=== PATIENT | male | born 1935 | race Caucasian/White ===

== ENCOUNTER → 2016-07-21 | Outpatient (REF) | payer MEDICARE, OTHER ==
[~2016-07-21] MED LIST: /DULO30CA OR; /MOXI40TA OR; /PANT40TA OR; AMAR1TAB OR; AMAR1TAB PO; AMLO10TA OR; AMLO2.5T PO; ARIC10TA PO; ARICEPT PO; ASPI81TA83 OR; AUGM875T27 PO; AVAP300T OR; BYSTOLIC PO; CARD2TAB OR; CARD2TAB PO; CARV12.5 OR; CYMB1CAP5 PO; DETR4CAP10 PO; DETROL LA PO; FERR325T PO; FIBE625T27 PO; FISH1000 PO; HYDR25TA7 OR; IMDU60TA OR; INSUDET SC; IRON CR PO; JANUVIA PO; LASI20TA PO; LEVA250T PO; LEVE1INJ5 SC; LEVO125T3 PO; MAAL600C PO; MAGN400T PO; MAGN500T2 PO; METF1000 PO; METO5TAB2 OR; MILKSUS5 PO; MULTIVIT PO; NEUR300C OR; NEUR400C PO; NEXI40CA PO; NORV5TAB PO; PRED1SUS OD; REFR0.5D8 OU; REQU2TAB3 PO; REST0.05 OU; ROCEPHIN IM; SIMV40TA2 OR; SIMV40TA2 PO; SINE25TA5 PO; SITA50TAB PO; SYNT100T PO; SYNT125T OR; TRENTAL PO; TUSSIN DM PO; TYLE325T5 PO; VITA100066 PO; VITAMIN D PO; ZINC220C3 PO; ZINC50TA PO; [UNRECOGNIZED DRUG - CODE] PO
== END ==
LOC: M SMT 16:58
PROVIDERS: ATTEND Nurse Practitioner Women's Health
DX: N40.1 Benign prostatic hyperplasia with lower urinary tract symptoms (principal)
CPT/HCPCS: 51798; 81001; 87086; G0463

== ENCOUNTER 2016-11-24 17:47 | Emergency (ER) | payer MEDICARE, OTHER ==
[~2016-11-24] VITALS: Ht 167.6 cm; Wt 81.8 kg
[2016-11-24] MEDS ORDERED: NS 500 ML IV ONE (18:00)
[2016-11-24] MEDS ORDERED: CARD2TAB PO (18:22)
[2016-11-24] MEDS ORDERED: LIDO5DIS36 TD (18:22)
[2016-11-24] MEDS ORDERED: HUMA100I5 SC (18:22)
[2016-11-24] MEDS ORDERED: FIBE625T27 PO (18:22)
[2016-11-24] MEDS ORDERED: DULO30CA PO (18:22)
[2016-11-24] MEDS ORDERED: ARIC10TA PO (18:23)
[2016-11-24] MEDS ORDERED: MYRB50TA PO (18:23)
[2016-11-24] MEDS ORDERED: OPTI0.5D5 OU (18:23)
[2016-11-24] MEDS ORDERED: PROA1AER INH (18:23)
[2016-11-24] MEDS ORDERED: ZOFR20TA PO (18:23)
--- NOTE | 2016-11-24 18:54 | REP ---
Clinical: Chest pain . Comparison: 10/29/2015 . Findings: The mediastinum and cardiac silhouette are stable and within normal limits for portable technique. The lung martinez are clear without acute consolidation, effusion, or pneumothorax. Skeletal structures are intact. Impression: Normal portable chest x-ray Signed by Devyn Mijares MD 11/24/2016 06:45 P
[2016-11-24 19:08] LABS: ANION GAP 6 MEQ/L (8-16); BLOOD UREA NITROGEN 24 MG/DL (7-18); CALCIUM LEVEL 8.8 MG/DL (8.8-10.2); CARBON DIOXIDE LEVEL 31 MEQ/L (21-32); CHLORIDE LEVEL 106 MEQ/L (98-107); CREATININE FOR GFR 1.15 MG/DL (0.70-1.30); GLOMERULAR FILTRATION RATE > 60.0 (>35); GLUCOSE, FASTING 84 MG/DL (83-110); POTASSIUM SERUM 4.3 MEQ/L (3.5-5.1); SODIUM LEVEL 143 MEQ/L (136-145)
[2016-11-24 19:34] LABS: BASO % 0.4 % (0.0-1.0); EOS # 0.3 K/mm3 (0.0-0.50); EOS % 3.9 % (0.0-3.0); LARGE UNSTAINED CELL # 0.1 K/mm3 (0.0-0.4); LARGE UNSTAINED CELL % 1.4 % (0.0-4.0); LYMPH # 1.9 K/mm3 (1.5-4.5); LYMPH % 21.7 % (24.0-44.0); MEAN CORPUSCULAR HEMOGLOBIN 31.9 pg (27.0-33.0); MEAN CORPUSCULAR HGB CONC 34.3 g/dl (32.0-36.5); MEAN CORPUSCULAR VOLUME 93.2 fl (80.0-96.0); MONO # 0.5 K/mm3 (0.0-0.8); MONO % 6.2 % (0.0-5.0); NEUTROPHILS # 5.4 K/mm3 (1.8-7.7); NEUTROPHILS % 66.4 % (36.0-66.0); PLATELET COUNT, AUTOMATED 212 k/mm3 (150-450); RED CELL DISTRIBUTION WIDTH 12.3 % (11.5-14.5); WHITE BLOOD COUNT 8.2 K/mm3 (4.0-10.0)
--- NOTE | 2016-11-24 21:19 | REP ---
Clinical: Altered mental status and dizziness. Comparison: CT dated 06/15/2015, 10/22/2013, and MRI dated 09/24/2013. Findings: Age-related atrophy and microvascular ischemic changes are appreciated along with chronic periventricular leukomalacia. Subcentimeter hyperdense focus along the medial left parietal lobe with surrounding low density remains stable and previously diagnosed as cavernous hemangioma by MRI. The ventricles and sulci are symmetric. Couch-white differentiation is maintained. There is no evidence for acute intracranial hemorrhage, mass/mass effect, pathology or infarction. No extra-axial fluid collection. Calvarium is intact. Paranasal sinuses and mastoid air cells are clear. Impression: 1. Age related atrophy, periventricular leukomalacia and microvascular ischemic changes. Stable medial left parietal subcentimeter cavernous hemangioma. 2. No acute intracranial hemorrhage, infarction, or mass/mass effect. Signed by Devyn Mijares MD 11/24/2016 09:10 P
[2016-11-24 21:54] VITALS: O2SAT 96
[2016-11-24 23:09] VITALS: BP 178/86
--- NOTE | 2016-11-25 08:23 | ECGEPIP ---
Stationary ECG Study 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
== END 2016-11-24 23:13 | disposition home or self-care (01) ==
LOC: M ED 19:20
DX: R53.1 Weakness (principal); G20 Parkinson's disease; D18.02 Hemangioma of intracranial structures; I12.9 Hypertensive chronic kidney disease with stage 1 through stage 4 chronic kidney disease, or unspecified chronic kidney disease; E11.22 Type 2 diabetes mellitus with diabetic chronic kidney disease; N18.9 Chronic kidney disease, unspecified; Z79.899 Other long term (current) drug therapy

== ENCOUNTER → 2016-12-08 | Outpatient (REF) | payer MEDICARE, OTHER ==
[~2016-12-08] MED LIST changes: +DULO30CA PO; +HUMA100I5 SC; +LIDO5DIS36 TD; +MYRB50TA PO; +OPTI0.5D5 OU; +PROA1AER INH; +ZOFR20TA PO
== END ==
LOC: M SFHCPLAZ 14:15
PROVIDERS: ATTEND Nurse Practitioner Family
DX: R53.83 Other fatigue (principal); E03.9 Hypothyroidism, unspecified; R10.30 Lower abdominal pain, unspecified
CPT/HCPCS: 87086; G0463

== ENCOUNTER → 2016-12-09 | Outpatient (REF) | payer MEDICARE, OTHER | LOC: M SFHCPLAZ 17:16 | PROVIDERS: ATTEND Nurse Practitioner Family | DX: R10.30 Lower abdominal pain, unspecified (principal) ==

== ENCOUNTER → 2016-12-14 | Outpatient (REF) | payer MEDICARE, OTHER ==
[2016-12-14 11:24] LABS: BASO % 0.4 % (0.0-1.0); EOS # 0.2 K/mm3 (0.0-0.50); EOS % 3.1 % (0.0-3.0); LARGE UNSTAINED CELL # 0.1 K/mm3 (0.0-0.4); LYMPH # 1.1 K/mm3 (1.5-4.5); LYMPH % 16.9 % (24.0-44.0); MEAN CORPUSCULAR HGB CONC 33.7 g/dl (32.0-36.5); MEAN CORPUSCULAR VOLUME 94.9 fl (80.0-96.0); MONO # 0.4 K/mm3 (0.0-0.8); MONO % 6.5 % (0.0-5.0); NEUTROPHILS # 4.7 K/mm3 (1.8-7.7); NEUTROPHILS % 72.1 % (36.0-66.0); PLATELET COUNT, AUTOMATED 223 k/mm3 (150-450); RED CELL DISTRIBUTION WIDTH 12.2 % (11.5-14.5); WHITE BLOOD COUNT 6.4 K/mm3 (4.0-10.0)
[2016-12-14 11:54] LABS: CALCIUM LEVEL 8.3 MG/DL (8.8-10.2); CREATININE FOR GFR 1.25 MG/DL (0.70-1.30); GLOMERULAR FILTRATION RATE 58.9 (>35); POTASSIUM SERUM 4.2 MEQ/L (3.5-5.1)
== END ==
PROVIDERS: ATTEND Nurse Practitioner Family
DX: R53.83 Other fatigue (principal); E03.9 Hypothyroidism, unspecified

== ENCOUNTER → 2017-01-13 | Outpatient (REF) | payer MEDICARE, OTHER ==
[~2017-01-13] MED LIST changes: +ALPR0.25 PO; -ARIC10TA PO; +ARIC1TAB2 PO; -AUGM875T27 PO; +AUGM875T28 PO; +BACT800T5 PO; +BUSP10TA PO; +BUSP5TA PO; +DETR4CAP PO; -DETR4CAP10 PO; +FERR1TAB8 PO; -FERR325T PO; +GUAI100S7 PO; +LEVA1TAB PO; -LEVA250T PO; -LEVO125T3 PO; +LEVO125T4 PO; +LEVO75TA4 PO; -LIDO5DIS36 TD; +LIDO5DIS41 TD; +MAPA325T2 PO; -METF1000 PO; +METF10004 PO; -PROA1AER INH; +PROAAER10 INH; +ZOLO50TA PO
== END ==
LOC: M SFHCPLAZ 11:04
PROVIDERS: ATTEND Family Medicine
DX: R53.1 Weakness (principal)

== ENCOUNTER 2017-01-28 16:03 | Emergency (ER) | payer MEDICARE, OTHER ==
[~2017-01-28] VITALS: Ht 162.6 cm; Wt 82.2 kg
[~2017-01-28 16:03] MED LIST changes: -ALPR0.25 PO; -BACT800T5 PO; -BUSP10TA PO; -BUSP5TA PO; -GUAI100S7 PO; -LEVO75TA4 PO; -MAPA325T2 PO; -ZOLO50TA PO
[2017-01-28] MEDS ORDERED: BUSP10TA PO (16:26)
[2017-01-28] MEDS ORDERED: ZOLO50TA PO (16:30)
--- NOTE | 2017-01-28 16:48 | REP ---
CT Head without contrast HISTORY: Trauma COMPARISON: 11/24/2016 Areas of decreased attenuation are present in the periventricular and subcortical white matter. This represents small-vessel ischemic disease. A small calcified density is present in the posterior left parietal lobe. This represents a cavernous hemangioma. There is no intraparenchymal hemorrhage, acute infarct, mass or midline shift. The ventricular system and cortical sulci as well as subarachnoid space in the posterior fossa are dilated consistent with moderate volume loss. There is no extra cerebral collection. There is no fracture. The visualized sinuses are clear. IMPRESSION: 1. Small vessel ischemic disease. 2. Small left parietal lobe cavernous hemangioma. 3. Moderate volume loss. Signed by Marcus Tarango MD 01/28/2017 04:39 P
--- NOTE | 2017-01-28 16:51 | REP ---
Right shoulder three views: Comparison is 05/24/2014. There is demineralization. There is no fracture or dislocation. There is narrowing of the subacromial space with cephalad migration of the humeral head, as previously, compatible with chronic impingement. There are no calcifications or foreign bodies. Signed by Sj Resendiz MD 01/28/2017 04:44 P
--- NOTE | 2017-01-28 16:53 | REP ---
Right wrist four views : There is no fracture or dislocation. Mineralization and joint spaces are normal. There are no calcifications or foreign bodies. Impression: Negative right wrist . Signed by Sj Resendiz MD 01/28/2017 04:45 P
[2017-01-28 18:03] VITALS: BP 131/72
--- NOTE | 2017-01-29 10:34 | ED PDOC ---
Post-Departure Follow-Up radiology report faxed to Lorie Escobar MD Jan 29, 2017 10:34
== END 2017-01-28 18:22 | disposition home or self-care (01) ==
LOC: EDBD 16:03 → M ED 16:03
DX: S40.012A Contusion of left shoulder, initial encounter (principal); W19.XXXA Unspecified fall, initial encounter; Y92.129 Unspecified place in nursing home as the place of occurrence of the external cause; Y93.89 Activity, other specified; Y99.8 Other external cause status; G20 Parkinson's disease; G30.9 Alzheimer's disease, unspecified; F02.81 Dementia in other diseases classified elsewhere, unspecified severity, with behavioral disturbance; N18.9 Chronic kidney disease, unspecified; I12.9 Hypertensive chronic kidney disease with stage 1 through stage 4 chronic kidney disease, or unspecified chronic kidney disease; E11.22 Type 2 diabetes mellitus with diabetic chronic kidney disease; E78.5 Hyperlipidemia, unspecified; Z79.4 Long term (current) use of insulin; Z79.899 Other long term (current) drug therapy

== ENCOUNTER → 2017-02-02 | Outpatient (REF) | payer MEDICARE, OTHER ==
[~2017-02-02] MED LIST changes: +ALPR0.25 PO; +BACT800T5 PO; +BUSP10TA PO; +BUSP5TA PO; +GUAI100S7 PO; +LEVO75TA4 PO; +MAPA325T2 PO; +ZOLO50TA PO
== END ==
PROVIDERS: ATTEND Family Medicine
DX: R41.0 Disorientation, unspecified (principal)

== ENCOUNTER 2017-02-05 16:17 | Inpatient (IN) | payer MEDICARE, OTHER ==
[~2017-02-05] VITALS: Ht 162.6 cm; Wt 78.6 kg
[~2017-02-05 16:17] MED LIST changes: -ALPR0.25 PO; -BACT800T5 PO; -BUSP5TA PO; -GUAI100S7 PO; -LEVO75TA4 PO; -MAPA325T2 PO
[2017-02-05 17:19] LABS: BASO % 0.3 % (0.0-1.0); EOS # 0.2 K/mm3 (0.0-0.50); EOS % 2.8 % (0.0-3.0); LARGE UNSTAINED CELL # 0.1 K/mm3 (0.0-0.4); LARGE UNSTAINED CELL % 1.6 % (0.0-4.0); LYMPH # 1.3 K/mm3 (1.5-4.5); LYMPH % 14.8 % (24.0-44.0); MEAN CORPUSCULAR HEMOGLOBIN 31.5 pg (27.0-33.0); MEAN CORPUSCULAR HGB CONC 33.7 g/dl (32.0-36.5); MEAN CORPUSCULAR VOLUME 93.6 fl (80.0-96.0); MONO # 0.5 K/mm3 (0.0-0.8); MONO % 5.4 % (0.0-5.0); NEUTROPHILS # 6.3 K/mm3 (1.8-7.7); NEUTROPHILS % 75.2 % (36.0-66.0); PLATELET COUNT, AUTOMATED 228 k/mm3 (150-450); RED CELL DISTRIBUTION WIDTH 12.5 % (11.5-14.5); WHITE BLOOD COUNT 8.4 K/mm3 (4.0-10.0)
--- NOTE | 2017-02-05 17:30 | REPUSA ---
CLINICAL HISTORY: AMS. TECHNIQUE: Multiple axial CT images were obtained through the brain without IV contrast material. COMMENTS: There is normal configuration of sella turcica. There are no intra or extra-axial collections. There is no mass effect or midline shift. There is no evidence of hematoma formation. No hydrocephalus is p resent. The ventricles are symmetrical. No abnormal calcifications are present. There is diffuse age-appropriate cerebellar and cerebral atrophy with proportionally dilated ventricl es and cortical sulci. There are bilateral periventricular and subcortical white matter hypolucencies compatible with mild c hronic microvascular disease. Otherwise, no significant focal abnormalities are seen either in the posterior fossa or supratentoria l compartment. IMPRESSION: 1. Age-appropriate cerebellar and cerebral atrophy. 2. Mild chronic microvascular disease. 3. No evidence of acute intracranial pathology. Thank you for your kind referral of this patient.
[2017-02-05] MEDS: NS 1,000 ML IV SCH (17:32)
[2017-02-05 17:56] LABS: ALBUMIN 3.5 GM/DL (3.2-5.2); ALBUMIN/GLOBULIN RATIO 1.17 (1.00-1.93); BILIRUBIN,DIRECT 0.1 MG/DL (0.0-0.2); BILIRUBIN,TOTAL 0.4 MG/DL (0.2-1.0); CALCIUM LEVEL 8.6 MG/DL (8.8-10.2); CREATININE FOR GFR 1.61 MG/DL (0.70-1.30); POTASSIUM SERUM 4.5 MEQ/L (3.5-5.1); TOTAL PROTEIN 6.5 GM/DL (6.4-8.2)
[2017-02-05] MEDS ORDERED: BACT800T5 PO (18:12)
[2017-02-05] MEDS ORDERED: ALPR0.25 PO (18:20)
[2017-02-05] MEDS ORDERED: BUSP5TA PO (18:20)
[2017-02-05] MEDS ORDERED: LEVO75TA4 PO (18:20)
[2017-02-05] MEDS ORDERED: GUAI100S7 PO (18:32)
[2017-02-05] MEDS ORDERED: MAPA325T2 PO (18:32)
[2017-02-05] MEDS ORDERED: GLUCAGON FOR INJ 1 MG VIAL (J1610) SC PRN (20:30)
[2017-02-05] MEDS ORDERED: ACETAMINOPHEN 325 MG TAB PO PRN (20:30)
[2017-02-05] MEDS ORDERED: guaiFENesin SYRUP 200 MG/10 ML UDC PO PRN (20:30)
[2017-02-05] MEDS ORDERED: GLUCOSE 4 GM CHEW TABLET PO PRN (20:30)
[2017-02-05] MEDS ORDERED: ALBUTEROL 90 MCG/ACT 8GM HFA INHALER INH PRN (20:30)
[2017-02-05] MEDS ORDERED: ONDANSETRON 4 MG TAB (S0181) PO PRN (20:30)
[2017-02-05] MEDS ORDERED: DEXTROSE 50% 50 ML SYRINGE IV PRN (20:30)
[2017-02-05] MEDS: HumaLOG INSULIN (NovoLOG) PER UNIT SC SCH (21:00)
[2017-02-05] MEDS: **NOTE PATIENT COMMENT** MISC XX SCH (21:00)
[2017-02-05 21:05] LABS: FREE T4 1.17 NG/DL (0.76-1.46)
--- NOTE | 2017-02-05 22:00 | REPUSA ---
Clinicaly History: Atherosclerosis. Findings: Real-Time carotid duplex ultrasound with color Doppler flow was performed on the right side only. The left carotid was not image. Normal color Doppler flow and arterial waveforms are noted. Mi ld atherosclerotic plaque is seen in the region of the right carotid bulb. No elevated velocities are seen however. Antegrade blood flow is seen in the vertebral arteries bilaterally. There is no eviden ce of subclavian steal. The right ICA/CCA ratio measures 0.63. Impression: No evidence of hemodynamically significant stenosis in the right carotid arterial system. Mild atherosclerotic plaque is seen in the region of the right carotid bulb. The left side was not i audelia.
--- NOTE | 2017-02-05 22:20 | REPUSA ---
MRI of the brain clinical history: altered mental status. Comparison: 02/05/2017. Technique: Multiecho multiplanar MRI images of the brain were obtained without administration of cont rast. Diffusion weighted images with ADC mapping was also obtained. Findings: The ventricles and sulci are symmetric but enlarged bilaterally. The brain parenchyma demonstrates mo derate Series of T2 hyperintensity throughout the. Ventricular and subcortical white matter bilateral ly. There is no midline shift, mass effect, or extra-axial fluid collection. The midline intracranial structures do not demonstrate any gross abnormalities. The cervical cranial junction is intact. The orbits are unremarkable. The visualized paranasal sinuses and mastoid air cells are clear. The osseou s structures and superficial soft tissues are unremarkable. The vascular structures demonstrate appro priate flow voids. Impression: No evidence of acute infarct or hemorrhage. Moderate age-related atrophy and chronic smal l vessel ischemic disease, grossly stable.
[2017-02-05 23:00] VITALS: BP 178/74
[2017-02-05] MEDS: rOPINIRole 1MG TAB PO SCH (23:54)
[2017-02-05] MEDS: SINEMET 25-100 MG TAB PO SCH (23:54)
[2017-02-06] VITALS (8 sets, daily range): BP systolic 139–180; BP diastolic 62–80
[2017-02-06] MEDS: PANTOPRAZOLE 40MG TAB (PROTONIX) PO SCH ×3 (00:10→21:00)
[2017-02-06] MEDS: DOXAZOSIN MESYLATE 1 MG TAB PO SCH ×2 (00:10→09:42)
[2017-02-06] MEDS: MAGNESIUM OXIDE 400 MG TAB (MAG-OX) PO SCH ×2 (00:10→21:12)
[2017-02-06] MEDS: busPIRone 5 MG TAB PO SCH ×3 (00:11→21:13)
[2017-02-06] MEDS: FERROUS SULFATE 325MG TAB PO SCH ×3 (00:11→21:13)
[2017-02-06] MEDS: SIMVASTATIN 20 MG TAB PO SCH ×2 (00:11→21:13)
--- NOTE | 2017-02-06 02:07 | ECGEPIP ---
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
[2017-02-06] MEDS: NS 1,000 ML IV SCH ×2 (05:16→13:38)
[2017-02-06] MEDS: LEVOTHYROXINE 75MCG TABLET (0.075MG) PO SCH (05:25)
[2017-02-06 05:33] LABS: BASO % 0.2 % (0.0-1.0); EOS # 0.2 K/mm3 (0.0-0.50); EOS % 2.9 % (0.0-3.0); LARGE UNSTAINED CELL # 0.1 K/mm3 (0.0-0.4); LARGE UNSTAINED CELL % 1.1 % (0.0-4.0); LYMPH # 1.2 K/mm3 (1.5-4.5); LYMPH % 14.1 % (24.0-44.0); MONO # 0.5 K/mm3 (0.0-0.8); MONO % 6.3 % (0.0-5.0); NEUTROPHILS % 75.3 % (36.0-66.0); PLATELET COUNT, AUTOMATED 223 k/mm3 (150-450); RED CELL DISTRIBUTION WIDTH 12.8 % (11.5-14.5)
[2017-02-06 05:50] LABS: ALBUMIN 3.1 GM/DL (3.2-5.2); ALBUMIN/GLOBULIN RATIO 0.94 (1.00-1.93); BILIRUBIN,TOTAL 0.5 MG/DL (0.2-1.0); CALCIUM LEVEL 8.4 MG/DL (8.8-10.2); CREATININE FOR GFR 1.41 MG/DL (0.70-1.30); GLOMERULAR FILTRATION RATE 51.2 (>35); POTASSIUM SERUM 4.1 MEQ/L (3.5-5.1); TOTAL PROTEIN 6.4 GM/DL (6.4-8.2)
--- NOTE | 2017-02-06 08:12 | REP ---
REASON: Altered mental status. COMPARISON: Portable 11/24/2016. AP and lateral views were obtained. The technique utilized in obtaining the radiograph has magnified the cardiac silhouette and accentuated the interstitial markings. The superior mediastinal structures are midline. The cardiac silhouette is unremarkable in size, shape, and position. The diaphragmatic surfaces of the lungs are regular, and the costophrenic angles are clear. The pulmonary martinez are clear. The imaged osseous structures are intact. IMPRESSION: There is no acute cardiopulmonary disease. No change from the prior exam other than technique. Signed by Shankar Ray DO 02/06/2017 09:21 A
--- NOTE | 2017-02-06 09:38 | REP ---
REASON: Abdominal tenderness. COMPARISON: 10/29/2015. FINDINGS: KUB shows the intestinal gas pattern to be nonspecific. The organ silhouettes insofar as delineated are unremarkable. There is no evidence of free intraperitoneal air. IMPRESSION: Nonspecific. There is a large amount of stool in the right and transverse colon. Signed by Shankar Ray DO 02/06/2017 10:16 A
[2017-02-06] MEDS: HumaLOG INSULIN (NovoLOG) PER UNIT SC SCH ×4 (09:41→21:12)
[2017-02-06] MEDS: VITAMIN D 1,000 INTERNATIONAL UNITS TABLET PO SCH (09:42)
[2017-02-06] MEDS: LIDOCAINE 5% (LIDODERM) PATCH TD SCH (09:42)
[2017-02-06] MEDS: FIBER-CON 625 MG TAB PO SCH (09:42)
[2017-02-06] MEDS: rOPINIRole 1MG TAB PO SCH ×2 (09:42→21:13)
[2017-02-06] MEDS: SINEMET 25-100 MG TAB PO SCH ×4 (09:42→21:13)
[2017-02-06] MEDS: OMEGA-3 1050MG CAPSULE PO SCH (09:42)
--- NOTE | 2017-02-06 14:45 | PHACANCOPD ---
PHARMACY VANCOMYCIN DOSING Pt Demographics Demographics Patient Age:81 , Weight:78.600 , Gender: male Adjusted Body Weight Date: 02/06/17, Adjusted Body Weight: Kg Events Past 24 Hours Events Past 24 Hours: YES: Change in CrCl, NO: Dialysis, Diuretic Therapy, Fever, Elevation in WBC, Pending Diagnostics , Pending Procedures, Other Vancomycin Vancomycin indication: bacteremia Vancomycin Target Ranges: 15-20 mcg/ml Vancomycin Load Y/N: Yes Load Dose Date Time Vancomycin Load Dose: 1000mg Date: 02/06 Time: 15:00 Vancomycin Dose Date: 02/06/17. Current Vancomycin Dose: [1g IV q18h @21] Intermittent Dosing?: No Labs Labs Item Value Date Time White Blood Count 8.4 K/mm3 02/05/17 1701 White Blood Count 8.0 K/mm3 02/06/17 0448 Creatinine 1.41 MG/DL H 02/06/17 0448 Creatinine 1.61 MG/DL H 02/05/17 1700 C-Reactive Protein, Quantitative 0.73 MG/DL H 02/05/17 1700 Micro Microbiology 02/05/17 Blood Culture - Preliminary, Resulted 02/05/17 Blood Culture, Received Pending 02/05/17 Urine Culture, Received Pending Creatinine Clearance Date:02/06/17. Creatinine Clearance: [~34 ml/min]. Assessment and Plan Maintaining Current Dose?: Yes Reason for dose change: No Dose Change Pharmacist Note Pharmacist Note Date: 02/06/17. Pharmacist note: pt has been started on vancomycin secondary to a preliminary positive blood culture of gram + cocci in clusters. Pt does not have any significant culture hx, nor has he been on vancomycin in the past. Baseline SCr appears to be around 1.1 mg/dl; it has improved today from yesterday although it is still elevated at 1.41 mg/dl. I have started him on vancomycin 1g IV q18h to start 6 hours after the initial dose. We will continue to monitor and order a trough as necessary. Denilson Stark Pharm.D. Feb 06, 2017 14:45
[2017-02-06] MEDS ORDERED: VANCOMYCIN HCL 1,000 MG, VIAL MATE ADAPTER 1 EACH in D5W 250 ML IV ONE (15:00)
[2017-02-06] MEDS: **NOTE PATIENT COMMENT** MISC XX SCH (21:00)
[2017-02-06] MEDS: VANCOMYCIN HCL 1,000 MG, VIAL MATE ADAPTER 1 EACH in D5W 250 ML IV SCH (21:13)
--- NOTE | 2017-02-06 22:51 | HPEPDOC ---
General Date of Admission Feb 05, 2017 at 20:16 Primary Care Physician: HECTOR BRISENO MD Attending Physician: PAUL PRATT DO Chief Complaint The patient is a 81-year-old male admitted with a reason for visit of Confusion , Fall. Source: Family Exam Limitations: Dementia History of Present Illness This is an 81 year old male patient of Dr. Briseno'kacie, who is brought to the ED from [facility] assisted living for complaints of confusion and falls. Mr. Jolly has had at least 3 falls in the last couple weeks. His daughter states that they have been unwitnessed, "slip off the bed," events without real injury. She does note that he has been increasingly weak in the last week or two, and describes him as "going downhill." He has a lift chair to help him stand, and once on his feet he will usually walk (slowly) throughout [facility], but has needed assistance to ambulate today. His daughter states that the morning of admission , while trying to stand, he was weak enough that he couldn't really get on his feet and kept sitting back down mid-motion. He was recently treated for a urinary tract infection, but urine cultures did not grow anything. He has had worsening anxiety since early December, causing some changes in his psychiatric medications. He was prescribed Buspar, and then his long-standing Cymbalta was stopped in favor of Zoloft. Home Medications Scheduled (Restasis) 0.05 % Emu, 1 DROP OU BID, (Reported) (Refresh Optive 0.5-0.9 %) 1 Jayy Jayy, 1 DROP OU QID, (Reported) Amlodipine Besylate (Amlodipine Besylate) 2.5 Mg Tab, 2.5 MG PO QHS, (Reported) Buspirone HCl (Buspirone HCl) 5 Mg Tab, 5 MG PO BID, (Reported) Calcium Polycarbophil (Fiber Tabs) 625 Mg Tab, 625 MG PO DAILY, (Reported) Carbidopa/Levodopa (Sinemet 25-100 mg) 1 Tab Tab, 1 TAB PO QID, (Reported) Cholecalciferol (Vitamin D) 1,000 Unit Tab, 1,000 UNIT PO DAILY, (Reported) Doxazosin Mesylate (Cardura) 2 Mg Tab, 2 MG PO BID, (Reported) Esomeprazole Magnesium Trihydr (Nexium) 40 Mg Cap, 40 MG PO BID, (Reported) Ferrous Sulfate (Ferrous Sulfate) 325 Mg Tab, 325 MG PO BID, (Reported) Fish Oil (Fish Oil) 1,000 Mg Cap, 1,000 MG PO DAILY, (Reported) Insulin Detemir (Levemir) 1 Units/0.01 Ml Susp, 22 UNITS SC DAILY, (Reported) Insulin Human Lispro (Humalog Kwikpen) 100 Unit/Ml Inj, 4 UNITS SC AC, (Reported ) Levothyroxine Sodium (Synthroid) 75 Mcg Tab, 75 MCG PO QAM, (Reported) Lidocaine (Lidoderm) 5 % Dis, 1 PATCH TD DAILY, (Reported) LOWER BACK Magnesium Oxide (Magnesium Oxide) 400 Mg Tab, 400 MG PO QHS, (Reported) Mirabegron Base (Myrbetriq) 50 Mg Tab, 50 MG PO DAILY, (Reported) Ropinirole Hydrochloride (Requip) 2 Mg Tab, 2 MG PO BID, (Reported) Sertraline Hcl (Zoloft) 50 Mg Tab, 50 MG PO DAILY, (Reported) Simvastatin - High Dose (Simvastatin) 40 Mg Tab, 20 MG PO QHS, (Reported) Sitagliptin (Januvia) 50 Mg Tab, 50 MG PO DAILY, (Reported) Trimethoprim/Sulfamethoxazole (Bactrim Ds 800-160 mg) 1 Tab Tab, 1 TAB PO Q12H, (Reported) 14 DAYS STARTED ON 02/03 Zinc (Zinc) 50 Mg Tab, 50 MG PO QPM, (Reported) with dinner Scheduled PRN Acetaminophen (Mapap) 325 Mg Tab, 325 MG PO Q6H PRN for FEVER, (Reported) Albuterol Sulfate (Proair Hfa) 108 Mcg/Act Aer, 1 PUFF INH QIDP PRN for SHORTNESS OF BREATH, (Reported) Alprazolam (Alprazolam) 0.25 Mg Tab, 0.25 MG PO BID PRN for ANXIETY, (Reported) Guaifenesin (Guaifenesin) 100 Mg/5 Ml Syp, 5 ML PO Q4H PRN for COUGH, (Reported) Ondansetron HCl (Zofran) 4 Mg Tab, 4 MG PO Q8H PRN for NAUSEA, (Reported) Allergies Coded Allergies: No Known Drug Allergy (Verified Allergy, Unknown, 10/10/12) Past Medical History Medical History Parkinson's, dementia, 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 He independently complains of leg and foot discomfort bilat. Physical Examination General Exam: Positive: Alert, Cooperative Eye Exam: Positive: PERRLA, Conjunctiva & lids normal, EOMI Chest Exam: Positive: Clear to auscultation, Normal air movement Heart Exam: Positive: Rate Normal Abdomen Exam: Positive: Normal bowel sounds, Soft, Tenderness (mild, LLQ) Extremity Exam: Negative: Edema Skin Exam: Positive: Nl turgor and temperature Neuro Exam: Negative: Normal Gait, Strength at 5/5 X4 ext, Sensation Intact Psych Exam: Positive: Mental status NL (confused), Anxiety, Negative: Oriented x 3 Vital Signs Vital Signs Date Time Temp Pulse Resp B/P (MAP) Pulse Ox O2 Delivery O2 Flow Rate FiO2 02/06/17 21:12 70 140/72 02/06/17 20:23 98.9 20 98 Room Air Laboratory Data Labs 24H Laboratory Tests 2 02/05/17 22:56: Total Creatine Kinase 516H, Creatine Kinase MB 9.8H, Creatine Kinase MB Relative Index 1.89, Troponin I 0.03 02/06/17 00:23: Bedside Glucose (Misc Panel) 83 02/06/17 04:48: White Blood Count 8.0, Red Blood Count 3.45L, Hemoglobin 11.0L, Hematocrit 32.5L , Mean Corpuscular Volume 94.0, Mean Corpuscular Hemoglobin 32.0, Mean Corpuscular Hemoglobin Concent 34.0, Red Cell Distribution Width 12.8, Platelet Count 223, Neutrophils (%) (Auto) 75.3H, Lymphocytes (%) (Auto) 14.1L, Monocytes (%) (Auto) 6.3H, Eosinophils (%) (Auto) 2.9, Basophils (%) (Auto) 0.2 , Neutrophils # (Auto) 6.0, Lymphocytes # (Auto) 1.2L, Monocytes # (Auto) 0.5, Eosinophils # (Auto) 0.2, Basophils # (Auto) 0.0, Large Unclassified Cells % 1.1 , Large Unclassified Cells # 0.1, Anion Gap 10, Glomerular Filtration Rate 51.2 , Blood Urea Nitrogen 26H, Creatinine 1.41H, Sodium Level 142, Potassium Level 4.1, Chloride Level 108H, Carbon Dioxide Level 24, Calcium Level 8.4L, Aspartate Amino Transf (AST/SGOT) 37, Alanine Aminotransferase (ALT/SGPT) 9L, Alkaline Phosphatase 78, Total Bilirubin 0.5, Total Protein 6.4, Albumin 3.1L, Albumin/Globulin Ratio 0.94L 02/06/17 16:36: Bedside Glucose (Misc Panel) 231H 02/06/17 20:58: Bedside Glucose (Misc Panel) 282H CBC/BMP Laboratory Tests 02/06/17 04:48 Red Blood Count 3.45 L, Mean Corpuscular Volume 94.0, Mean Corpuscular Hemoglobin 32.0, Mean Corpuscular Hemoglobin Concent 34.0, Red Cell Distribution Width 12.8, Neutrophils (%) (Auto) 75.3 H, Lymphocytes (%) (Auto) 14.1 L, Monocytes (%) (Auto) 6.3 H, Eosinophils (%) (Auto) 2.9, Basophils (%) ( Auto) 0.2, Neutrophils # (Auto) 6.0, Lymphocytes # (Auto) 1.2 L, Monocytes # ( Auto) 0.5, Eosinophils # (Auto) 0.2, Basophils # (Auto) 0.0, Calcium Level 8.4 L , Aspartate Amino Transf (AST/SGOT) 37, Alanine Aminotransferase (ALT/SGPT) 9 L , Alkaline Phosphatase 78, Total Bilirubin 0.5, Total Protein 6.4, Albumin 3.1 L Microbiology Microbiology 02/06/17 Blood Culture, Received Pending 02/06/17 Blood Culture, Received Pending 02/05/17 Blood Culture - Preliminary, Resulted 02/05/17 Blood Culture - Preliminary, Resulted 02/05/17 Urine Culture, Received Pending Problems (1) Fall Status: Acute Problem Text: Without injury. PT to eval and treat. Orthostatic vitals ordered. (2) Weakness Status: Acute Problem Text: Differential includes deconditioning vs medication vs orthostasis , or a combination. Orthostatic vitals ordered. PT will eval and treat. He may not be safe for DC to assisted living. (3) Parkinson's disease Status: Acute Problem Text: On levodopa/carbidopa. Gait likely contributes to his falls. (4) Confusion Problem Text: I am holding his most recent SSRI, in case that is contributing. An occult infection is a possibility. He was prescribed Bactrim for a UTI on , but current UA does not look consistent with a UTI, so I am holding antibiotics and monitoring. (Cultures sent.) Additionally, his dementia may be worsening. (5) Chronic kidney disease Status: Chronic (6) Abdominal tenderness of left lower quadrant Status: Acute Problem Text: Mild. Plain film ordered. Plan / VTE VTE Prophylaxis Ordered?: Yes PAUL PRATT DO Feb 06, 2017 22:51
--- NOTE | 2017-02-06 23:03 | IPNPDOC ---
Subjective Date Seen The patient was seen on 02/06/17. Subjective Chief Complaint/HPI The patient is a 81-year-old male admitted with a reason for visit of Confusion , Fall. Events since last encounter Orthostatic vitals were taken, and patient was found to be orthostatic. One blood culture came back positive with clustered gram positive cocci. He was unable to participate with PT. General: Reports: ROS Unobtainable Objective Physical Examination General Exam: Positive: Alert, Cooperative Eye Exam: Positive: PERRLA, Conjunctiva & lids normal, EOMI Chest Exam: Positive: Clear to auscultation, Normal air movement Heart Exam: Positive: Rate Normal Abdomen Exam: Positive: Normal bowel sounds, Soft, Negative: Tenderness Extremity Exam: Negative: Edema Skin Exam: Positive: Nl turgor and temperature Neuro Exam: Negative: Normal Gait, Strength at 5/5 X4 ext, Sensation Intact Psych Exam: Positive: Mental status NL (confused), Anxiety, Negative: Oriented x 3 Assessment /Plan Problems (1) Fall Status: Acute Problem Text: 02/06 -- likely contributed to by orthostasis, but probably multifactorial -- vision, neuropathy, deconditioning, orthostasis, etc. He is having trouble cooperating with PT. Without injury. PT to eval and treat. Orthostatic vitals ordered. (2) Weakness Status: Acute Response to Treatment: Compensated, Progressing Problem Text: 02/06 -- as above, patient becomes orthostatic. Differential includes deconditioning vs medication vs orthostasis, or a combination. Orthostatic vitals ordered. PT will eval and treat. He may not be safe for DC to assisted living. (3) Parkinson's disease Status: Acute Problem Text: On levodopa/carbidopa. Gait likely contributes to his falls. (4) Confusion Problem Text: I am holding his most recent SSRI, in case that is contributing. An occult infection is a possibility. He was prescribed Bactrim for a UTI on , but current UA does not look consistent with a UTI, so I am holding antibiotics and monitoring. (Cultures sent.) Additionally, his dementia may be worsening. (5) Chronic kidney disease Status: Chronic (6) Abdominal tenderness of left lower quadrant Status: Acute Problem Text: 02/06 -- X ray consistent with constipation; bowel care ordered. Mild. Plain film ordered. (7) Orthostasis Problem Text: Patient is on a number of medications that can contribute to orthostasis, including doxazosin. I started by DCing this, with bladder scans to monitor for urinary retention. We may need to adjust other medications as well. Follow up orthostatic vitals are ordered for tomorrow. (8) Positive blood culture Problem Text: Unclear if this is real or contaminant. Started on vanco until this is determined. Echo ordered. Plan/VTE VTE Prophylaxis Ordered?: Yes VS, I&O, 24H, Fishbone Vital Signs/I&O Vital Signs Date Time Temp Pulse Resp B/P (MAP) Pulse Ox O2 Delivery O2 Flow Rate FiO2 02/06/17 21:12 70 140/72 02/06/17 20:23 98.9 20 98 Room Air I&O- Last 24 Hours up to 6 AM 02/06/17 06:00 Intake Total 1180 ml Balance 1180 ml Laboratory Data 24H LABS Laboratory Tests 2 02/05/17 22:56: Total Creatine Kinase 516H, Creatine Kinase MB 9.8H, Creatine Kinase MB Relative Index 1.89, Troponin I 0.03 02/06/17 00:23: Bedside Glucose (Misc Panel) 83 02/06/17 04:48: White Blood Count 8.0, Red Blood Count 3.45L, Hemoglobin 11.0L, Hematocrit 32.5L , Mean Corpuscular Volume 94.0, Mean Corpuscular Hemoglobin 32.0, Mean Corpuscular Hemoglobin Concent 34.0, Red Cell Distribution Width 12.8, Platelet Count 223, Neutrophils (%) (Auto) 75.3H, Lymphocytes (%) (Auto) 14.1L, Monocytes (%) (Auto) 6.3H, Eosinophils (%) (Auto) 2.9, Basophils (%) (Auto) 0.2 , Neutrophils # (Auto) 6.0, Lymphocytes # (Auto) 1.2L, Monocytes # (Auto) 0.5, Eosinophils # (Auto) 0.2, Basophils # (Auto) 0.0, Large Unclassified Cells % 1.1 , Large Unclassified Cells # 0.1, Anion Gap 10, Glomerular Filtration Rate 51.2 , Blood Urea Nitrogen 26H, Creatinine 1.41H, Sodium Level 142, Potassium Level 4.1, Chloride Level 108H, Carbon Dioxide Level 24, Calcium Level 8.4L, Aspartate Amino Transf (AST/SGOT) 37, Alanine Aminotransferase (ALT/SGPT) 9L, Alkaline Phosphatase 78, Total Bilirubin 0.5, Total Protein 6.4, Albumin 3.1L, Albumin/Globulin Ratio 0.94L 02/06/17 16:36: Bedside Glucose (Misc Panel) 231H 02/06/17 20:58: Bedside Glucose (Misc Panel) 282H CBC/BMP Laboratory Tests 02/06/17 04:48 Red Blood Count 3.45 L, Mean Corpuscular Volume 94.0, Mean Corpuscular Hemoglobin 32.0, Mean Corpuscular Hemoglobin Concent 34.0, Red Cell Distribution Width 12.8, Neutrophils (%) (Auto) 75.3 H, Lymphocytes (%) (Auto) 14.1 L, Monocytes (%) (Auto) 6.3 H, Eosinophils (%) (Auto) 2.9, Basophils (%) ( Auto) 0.2, Neutrophils # (Auto) 6.0, Lymphocytes # (Auto) 1.2 L, Monocytes # ( Auto) 0.5, Eosinophils # (Auto) 0.2, Basophils # (Auto) 0.0, Calcium Level 8.4 L , Aspartate Amino Transf (AST/SGOT) 37, Alanine Aminotransferase (ALT/SGPT) 9 L , Alkaline Phosphatase 78, Total Bilirubin 0.5, Total Protein 6.4, Albumin 3.1 L Microbiology Microbiology 02/06/17 Blood Culture, Received Pending 02/06/17 Blood Culture, Received Pending 02/05/17 Blood Culture - Preliminary, Resulted 02/05/17 Blood Culture - Preliminary, Resulted 02/05/17 Urine Culture, Received Pending PAUL PRATT DO Feb 06, 2017 23:03
[2017-02-07] MEDS: NS 1,000 ML IV SCH ×3 (04:36→21:48)
[2017-02-07] MEDS: LEVOTHYROXINE 75MCG TABLET (0.075MG) PO SCH (05:29)
[2017-02-07 05:51] LABS: BASO % 0.3 % (0.0-1.0); EOS # 0.4 K/mm3 (0.0-0.50); EOS % 4.1 % (0.0-3.0); LARGE UNSTAINED CELL % 1.1 % (0.0-4.0); LYMPH # 1.2 K/mm3 (1.5-4.5); LYMPH % 12.8 % (24.0-44.0); MEAN CORPUSCULAR HEMOGLOBIN 32.2 pg (27.0-33.0); MEAN CORPUSCULAR HGB CONC 34.1 g/dl (32.0-36.5); MEAN CORPUSCULAR VOLUME 94.3 fl (80.0-96.0); MONO # 0.5 K/mm3 (0.0-0.8); MONO % 6.2 % (0.0-5.0); NEUTROPHILS # 6.4 K/mm3 (1.8-7.7); NEUTROPHILS % 75.5 % (36.0-66.0); PLATELET COUNT, AUTOMATED 220 k/mm3 (150-450); RED CELL DISTRIBUTION WIDTH 12.6 % (11.5-14.5); WHITE BLOOD COUNT 8.5 K/mm3 (4.0-10.0)
[2017-02-07 05:52] LABS: ALBUMIN 3.1 GM/DL (3.2-5.2); ALKALINE PHOSPHATASE 83 U/L (45-117); ALT/SGPT 14 U/L (12-78); ANION GAP 11 MEQ/L (8-16); AST/SGOT 49 U/L (15-37); BILIRUBIN,TOTAL 0.6 MG/DL (0.2-1.0); BLOOD UREA NITROGEN 17 MG/DL (7-18); CALCIUM LEVEL 8.1 MG/DL (8.8-10.2); CARBON DIOXIDE LEVEL 21 MEQ/L (21-32); CHLORIDE LEVEL 108 MEQ/L (98-107); CREATININE FOR GFR 1.16 MG/DL (0.70-1.30); GLOMERULAR FILTRATION RATE > 60.0 (>35); GLUCOSE, FASTING 147 MG/DL (83-110); LARGE UNSTAINED CELL # 0.1 K/mm3 (0.0-0.4); POTASSIUM SERUM 4.2 MEQ/L (3.5-5.1); SODIUM LEVEL 140 MEQ/L (136-145); TOTAL PROTEIN 6.2 GM/DL (6.4-8.2)
[2017-02-07 06:00] VITALS: BP_SYST 134; BP_SYST 137; BP_SYST 158; BP_DIAS 61; BP_DIAS 78; BP_DIAS 89
[2017-02-07] MEDS: PANTOPRAZOLE 40MG TAB (PROTONIX) PO SCH ×2 (07:55→21:48)
[2017-02-07] MEDS: HumaLOG INSULIN (NovoLOG) PER UNIT SC SCH ×4 (07:55→21:00)
[2017-02-07] MEDS: FERROUS SULFATE 325MG TAB PO SCH ×2 (07:55→21:48)
[2017-02-07] MEDS: LIDOCAINE 5% (LIDODERM) PATCH TD SCH (07:56)
[2017-02-07] MEDS: SINEMET 25-100 MG TAB PO SCH ×4 (07:56→21:48)
[2017-02-07] MEDS: VITAMIN D 1,000 INTERNATIONAL UNITS TABLET PO SCH (07:56)
[2017-02-07] MEDS: rOPINIRole 1MG TAB PO SCH ×2 (07:56→21:47)
[2017-02-07] MEDS: busPIRone 5 MG TAB PO SCH ×2 (07:56→21:49)
[2017-02-07] MEDS: OMEGA-3 1050MG CAPSULE PO SCH (07:56)
[2017-02-07] MEDS: FIBER-CON 625 MG TAB PO SCH (07:56)
--- NOTE | 2017-02-07 11:16 | IPNPDOC ---
Subjective Date Seen The patient was seen on 02/07/17. Subjective Chief Complaint/HPI The patient is a 81-year-old male admitted with a reason for visit of Confusion , Fall. Events since last encounter Pt confused this morning. Nursing without new concerns. General: Reports: ROS Unobtainable Objective Physical Examination General Exam: Positive: Alert, Cooperative Eye Exam: Positive: Conjunctiva & lids normal, EOMI Chest Exam: Positive: Clear to auscultation, Normal air movement Heart Exam: Positive: Rate Normal Abdomen Exam: Positive: Normal bowel sounds, Soft, Negative: Tenderness Extremity Exam: Negative: Edema Skin Exam: Positive: Nl turgor and temperature Neuro Exam: Negative: Normal Gait, Strength at 5/5 X4 ext, Sensation Intact Psych Exam: Positive: Anxiety, Negative: Mental status NL (confused), Oriented x 3 Assessment /Plan Problems (1) Positive blood culture Problem Text: D2 vanco 02/07 afebrile since admission, no obvious source, normal WBC 02/06 BCX x 2 NG 02/05 BCX x 2 G+ cocci clusters 02/05 UCX cathed NG 02/06 TTE ordered-have read STAT (2) Orthostasis Problem Text: favor 2 dehydration, alpha-everette, autonomic dysfx 2 Parkinson' s dis 02/06 doxazosin 2 BID held (last dose 02/06 900) (3) Fall Status: Acute Problem Text: 02/07 case d/w PCP-Dr. Briseno who STRONGLY feels patient needs SNF 02/06 -- likely contributed to by orthostasis, but probably multifactorial -- vision, neuropathy, deconditioning, orthostasis, etc. He is having trouble cooperating with PT. Without injury. PT to eval and treat. Orthostatic vitals ordered. (4) Weakness Status: Acute Response to Treatment: Compensated, Progressing Problem Text: 02/06 -- as above, patient becomes orthostatic. Differential includes deconditioning vs medication vs orthostasis, or a combination. Orthostatic vitals ordered. PT will eval and treat. He may not be safe for DC to assisted living. 02/05 MRI brain: Impression: No evidence of acute infarct or hemorrhage. Moderate age-related atrophy and chronic small vessel ischemic disease, grossly stable. (5) Parkinson's disease Status: Acute Problem Text: On levodopa/carbidopa and DA agonist. (6) Confusion Problem Text: urine cx neg, blood cultures x 2 prelim + , repeat pending. afebrile, no leukocytosis, Vanco started 02/06, monitor. SSRI held. An occult infection is a possibility. He was prescribed Bactrim for a UTI on , but current UA does not look consistent with a UTI, so I am holding antibiotics and monitoring. (Cultures sent.) Additionally, his dementia may be worsening. (7) Chronic kidney disease Status: Chronic Response to Treatment: Stable Problem Text: had TRINA 1 at baseline cr 1.1-1.2 (8) Abdominal tenderness of left lower quadrant Status: Acute Problem Text: 02/06 -- X ray consistent with constipation; bowel care ordered. Mild. Plain film ordered. Plan/VTE VTE Prophylaxis Ordered?: Yes VS, I&O, 24H, Fishbone Vital Signs/I&O Vital Signs Date Time Temp Pulse Resp B/P (MAP) Pulse Ox O2 Delivery O2 Flow Rate FiO2 02/07/17 06:00 98.2 84 20 158/78 (104) 95 02/06/17 22:30 Room Air I&O- Last 24 Hours up to 6 AM 02/07/17 05:59 Intake Total 1520 ml Output Total 325 ml Balance 1195 ml Laboratory Data 24H LABS Laboratory Tests 2 02/06/17 16:36: Bedside Glucose (Misc Panel) 231H 02/06/17 20:58: Bedside Glucose (Misc Panel) 282H 02/07/17 05:17: White Blood Count 8.5, Red Blood Count 3.61L, Hemoglobin 11.6L, Hematocrit 34.1L , Mean Corpuscular Volume 94.3, Mean Corpuscular Hemoglobin 32.2, Mean Corpuscular Hemoglobin Concent 34.1, Red Cell Distribution Width 12.6, Platelet Count 220, Neutrophils (%) (Auto) 75.5H, Lymphocytes (%) (Auto) 12.8L, Monocytes (%) (Auto) 6.2H, Eosinophils (%) (Auto) 4.1H, Basophils (%) (Auto) 0.3 , Neutrophils # (Auto) 6.4, Lymphocytes # (Auto) 1.2L, Monocytes # (Auto) 0.5, Eosinophils # (Auto) 0.4, Basophils # (Auto) 0.0, Large Unclassified Cells % 1.1 , Large Unclassified Cells # 0.1, Anion Gap 11, Glomerular Filtration Rate > 60.0, Blood Urea Nitrogen 17, Creatinine 1.16, Sodium Level 140, Potassium Level 4.2, Chloride Level 108H, Carbon Dioxide Level 21, Calcium Level 8.1L, Aspartate Amino Transf (AST/SGOT) 49H, Alanine Aminotransferase (ALT/SGPT) 14, Alkaline Phosphatase 83, Total Bilirubin 0.6, Total Protein 6.2L, Albumin 3.1L, Albumin/Globulin Ratio 1.00 CBC/BMP Laboratory Tests 02/07/17 05:17 Red Blood Count 3.61 L, Mean Corpuscular Volume 94.3, Mean Corpuscular Hemoglobin 32.2, Mean Corpuscular Hemoglobin Concent 34.1, Red Cell Distribution Width 12.6, Neutrophils (%) (Auto) 75.5 H, Lymphocytes (%) (Auto) 12.8 L, Monocytes (%) (Auto) 6.2 H, Eosinophils (%) (Auto) 4.1 H, Basophils (%) (Auto) 0.3, Neutrophils # (Auto) 6.4, Lymphocytes # (Auto) 1.2 L, Monocytes # ( Auto) 0.5, Eosinophils # (Auto) 0.4, Basophils # (Auto) 0.0, Calcium Level 8.1 L , Aspartate Amino Transf (AST/SGOT) 49 H, Alanine Aminotransferase (ALT/SGPT) 14 , Alkaline Phosphatase 83, Total Bilirubin 0.6, Total Protein 6.2 L, Albumin 3.1 L Microbiology Microbiology 02/06/17 Blood Culture, Received Pending 02/06/17 Blood Culture, Received Pending 02/05/17 Blood Culture - Preliminary, Resulted 02/05/17 Blood Culture - Preliminary, Resulted 02/05/17 Urine Culture - Final, Complete ROLLY BERG PA-C Feb 07, 2017 11:16 Andres Velásquez M.D. Feb 07, 2017 16:19
[2017-02-07 14:00] VITALS: BP 164/77
[2017-02-07] MEDS: VANCOMYCIN HCL 1,000 MG, VIAL MATE ADAPTER 1 EACH in D5W 250 ML IV SCH (15:19)
[2017-02-07] MEDS: SENNA 8.6 MG TAB (SENOKOT) PO PRN (18:03)
[2017-02-07] MEDS: MIRALAX *UNIT DOSE* 17GM PACKET PO PRN (18:03)
[2017-02-07] MEDS: **NOTE PATIENT COMMENT** MISC XX SCH (21:00)
[2017-02-07] MEDS: MAGNESIUM OXIDE 400 MG TAB (MAG-OX) PO SCH (21:48)
[2017-02-07] MEDS: SIMVASTATIN 20 MG TAB PO SCH (21:49)
[2017-02-07 22:00] VITALS: BP 155/78
[2017-02-08] MEDS: LEVOTHYROXINE 75MCG TABLET (0.075MG) PO SCH (05:56)
[2017-02-08] MEDS: NS 1,000 ML IV SCH ×2 (05:56→18:38)
[2017-02-08 06:00] VITALS: BP_SYST 150; BP_SYST 152; BP_DIAS 80
[2017-02-08 06:24] LABS: BASO % 0.4 % (0.0-1.0); EOS # 0.3 K/mm3 (0.0-0.50); EOS % 4.5 % (0.0-3.0); LARGE UNSTAINED CELL # 0.1 K/mm3 (0.0-0.4); LYMPH # 1.1 K/mm3 (1.5-4.5); LYMPH % 13.3 % (24.0-44.0); MEAN CORPUSCULAR HEMOGLOBIN 31.9 pg (27.0-33.0); MEAN CORPUSCULAR HGB CONC 33.6 g/dl (32.0-36.5); MEAN CORPUSCULAR VOLUME 95.1 fl (80.0-96.0); MONO # 0.5 K/mm3 (0.0-0.8); MONO % 6.9 % (0.0-5.0); NEUTROPHILS # 5.5 K/mm3 (1.8-7.7); NEUTROPHILS % 73.9 % (36.0-66.0); PLATELET COUNT, AUTOMATED 211 k/mm3 (150-450); RED CELL DISTRIBUTION WIDTH 12.6 % (11.5-14.5); WHITE BLOOD COUNT 7.4 K/mm3 (4.0-10.0)
[2017-02-08 06:38] LABS: ALBUMIN/GLOBULIN RATIO 0.94 (1.00-1.93); ALKALINE PHOSPHATASE 75 U/L (45-117); ALT/SGPT 11 U/L (12-78); ANION GAP 8 MEQ/L (8-16); AST/SGOT 45 U/L (15-37); BILIRUBIN,TOTAL 0.5 MG/DL (0.2-1.0); BLOOD UREA NITROGEN 15 MG/DL (7-18); CALCIUM LEVEL 8.4 MG/DL (8.8-10.2); CARBON DIOXIDE LEVEL 25 MEQ/L (21-32); CHLORIDE LEVEL 109 MEQ/L (98-107); CREATININE FOR GFR 0.98 MG/DL (0.70-1.30); GLOMERULAR FILTRATION RATE > 60.0 (>35); GLUCOSE, FASTING 160 MG/DL (83-110); POTASSIUM SERUM 4.1 MEQ/L (3.5-5.1); SODIUM LEVEL 142 MEQ/L (136-145); TOTAL PROTEIN 6.2 GM/DL (6.4-8.2)
[2017-02-08] MEDS: VANCOMYCIN HCL 1,000 MG, VIAL MATE ADAPTER 1 EACH in D5W 250 ML IV SCH (08:10)
[2017-02-08] MEDS: SENNA 8.6 MG TAB (SENOKOT) PO PRN ×2 (08:10→21:24)
[2017-02-08] MEDS: FIBER-CON 625 MG TAB PO SCH (08:10)
[2017-02-08] MEDS: FERROUS SULFATE 325MG TAB PO SCH ×2 (08:10→21:26)
[2017-02-08] MEDS: OMEGA-3 1050MG CAPSULE PO SCH (08:10)
[2017-02-08] MEDS: PANTOPRAZOLE 40MG TAB (PROTONIX) PO SCH ×2 (08:10→21:26)
[2017-02-08] MEDS: MIRALAX *UNIT DOSE* 17GM PACKET PO PRN (08:10)
[2017-02-08] MEDS: LIDOCAINE 5% (LIDODERM) PATCH TD SCH (08:10)
[2017-02-08] MEDS: busPIRone 5 MG TAB PO SCH ×2 (08:10→21:25)
[2017-02-08] MEDS: HumaLOG INSULIN (NovoLOG) PER UNIT SC SCH ×4 (08:10→21:00)
[2017-02-08] MEDS: VITAMIN D 1,000 INTERNATIONAL UNITS TABLET PO SCH (08:10)
[2017-02-08] MEDS: rOPINIRole 1MG TAB PO SCH ×2 (08:10→21:24)
[2017-02-08] MEDS: SINEMET 25-100 MG TAB PO SCH ×4 (08:11→21:26)
--- NOTE | 2017-02-08 11:23 | IPNPDOC ---
Subjective Date Seen The patient was seen on 02/08/17. Subjective Chief Complaint/HPI The patient is a 81-year-old male admitted with a reason for visit of Confusion , Fall. Events since last encounter Pts family at bedside this morning. States that his MS is very close to baseline. His dgt states that he often has difficulty completely sentences, unable to hold a conversation. Plan return SNF (came from [facility]) Constitutional: Denies: Chills, Fever Pulmonary: Denies: Dyspnea, Cough Cardiovascular: Denies: Chest Pain, Palpitations Gastrointestinal: Denies: Nausea, Vomiting, Diarrhea Neurological: Reports: Weakness Psych: Reports: Memory Issues Objective Physical Examination General Exam: Positive: Alert, Cooperative Eye Exam: Positive: Conjunctiva & lids normal, EOMI ENT Exam: Positive: Mucous membr. moist/pink Chest Exam: Positive: Clear to auscultation, Diminished Heart Exam: Positive: Rate Normal, Normal S1, Normal S2 Abdomen Exam: Positive: Normal bowel sounds, Soft, Negative: Tenderness Extremity Exam: Negative: Edema Skin Exam: Positive: Nl turgor and temperature Psych Exam: Negative: Mental status NL (confused), Oriented x 3 (Oriented to person only) Assessment /Plan Problems (1) Positive blood culture Problem Text: D3 vanco 02/08 remains stable, MS, wakefulness has improved since yesterday-dc vanco if - TTE 02/07 afebrile since admission, no obvious source, normal WBC 02/06 BCX x 2 NG 02/05 BCX x 2 S. hominis (drawn 2 minutes apart-probably from same contaminated draw and NO h/o prosthetic device/valve) 02/05 UCX cathed NG 02/06 TTE ordered-have read STAT (2) Orthostasis Problem Text: favor 2 dehydration, alpha-everette, autonomic dysfx 2 Parkinson' s dis 02/06 doxazosin 2 BID held (last dose 02/06 900) (3) Fall Status: Acute Problem Text: 02/07 case d/w PCP-Dr. Briseno who STRONGLY feels patient needs SNF 02/06 -- likely contributed to by orthostasis, but probably multifactorial -- vision, neuropathy, deconditioning, orthostasis, etc. He is having trouble cooperating with PT. Without injury. PT to eval and treat. Orthostatic vitals ordered. (4) Weakness Status: Acute Response to Treatment: Compensated, Progressing Problem Text: 02/06 -- as above, patient becomes orthostatic. Differential includes deconditioning vs medication vs orthostasis, or a combination. Orthostatic vitals ordered. PT will eval and treat. He may not be safe for DC to assisted living. 02/05 MRI brain: Impression: No evidence of acute infarct or hemorrhage. Moderate age-related atrophy and chronic small vessel ischemic disease, grossly stable. (5) Parkinson's disease Status: Acute Problem Text: On levodopa/carbidopa and DA agonist. (6) Confusion Problem Text: urine cx neg, blood cultures x 2 prelim + Staph Hominis , repeat negative, afebrile, no leukocytosis, Vanco started 02/06, monitor. SSRI held. An occult infection is a possibility. He was prescribed Bactrim for a UTI on , but current UA does not look consistent with a UTI, so I am holding antibiotics and monitoring. (Cultures sent.) Additionally, his dementia may be worsening. (7) Chronic kidney disease Status: Chronic Response to Treatment: Stable Problem Text: had TRINA 1 at baseline cr 1.1-1.2 Plan/VTE VTE Prophylaxis Ordered?: Yes VS, I&O, 24H, Fishbone Vital Signs/I&O Vital Signs Date Time Temp Pulse Resp B/P (MAP) Pulse Ox O2 Delivery O2 Flow Rate FiO2 02/08/17 06:00 77 152/80 (104) 77 150/80 (103) 02/08/17 06:00 97.1 17 95 Room Air I&O- Last 24 Hours up to 6 AM 02/08/17 06:00 Intake Total 1760 ml Output Total 0 ml Balance 1760 ml Laboratory Data 24H LABS Laboratory Tests 2 02/07/17 12:11: Bedside Glucose (Misc Panel) 174H 02/07/17 16:42: Bedside Glucose (Misc Panel) 135H 02/07/17 20:10: Bedside Glucose (Misc Panel) 184H 02/08/17 06:05: White Blood Count 7.4, Red Blood Count 3.55L, Hemoglobin 11.3L, Hematocrit 33.7L , Mean Corpuscular Volume 95.1, Mean Corpuscular Hemoglobin 31.9, Mean Corpuscular Hemoglobin Concent 33.6, Red Cell Distribution Width 12.6, Platelet Count 211, Neutrophils (%) (Auto) 73.9H, Lymphocytes (%) (Auto) 13.3L, Monocytes (%) (Auto) 6.9H, Eosinophils (%) (Auto) 4.5H, Basophils (%) (Auto) 0.4 , Neutrophils # (Auto) 5.5, Lymphocytes # (Auto) 1.1L, Monocytes # (Auto) 0.5, Eosinophils # (Auto) 0.3, Basophils # (Auto) 0.0, Large Unclassified Cells % 1.0 , Large Unclassified Cells # 0.1, Anion Gap 8, Glomerular Filtration Rate > 60.0 , Blood Urea Nitrogen 15, Creatinine 0.98, Sodium Level 142, Potassium Level 4.1 , Chloride Level 109H, Carbon Dioxide Level 25, Calcium Level 8.4L, Aspartate Amino Transf (AST/SGOT) 45H, Alanine Aminotransferase (ALT/SGPT) 11L, Alkaline Phosphatase 75, Total Bilirubin 0.5, Total Protein 6.2L, Albumin 3.0L, Albumin/ Globulin Ratio 0.94L CBC/BMP Laboratory Tests 02/08/17 06:05 Red Blood Count 3.55 L, Mean Corpuscular Volume 95.1, Mean Corpuscular Hemoglobin 31.9, Mean Corpuscular Hemoglobin Concent 33.6, Red Cell Distribution Width 12.6, Neutrophils (%) (Auto) 73.9 H, Lymphocytes (%) (Auto) 13.3 L, Monocytes (%) (Auto) 6.9 H, Eosinophils (%) (Auto) 4.5 H, Basophils (%) (Auto) 0.4, Neutrophils # (Auto) 5.5, Lymphocytes # (Auto) 1.1 L, Monocytes # ( Auto) 0.5, Eosinophils # (Auto) 0.3, Basophils # (Auto) 0.0, Calcium Level 8.4 L , Aspartate Amino Transf (AST/SGOT) 45 H, Alanine Aminotransferase (ALT/SGPT) 11 L, Alkaline Phosphatase 75, Total Bilirubin 0.5, Total Protein 6.2 L, Albumin 3.0 L Microbiology Microbiology 02/06/17 Blood Culture - Preliminary, Resulted No growth after 24 hours . All specim... 02/06/17 Blood Culture - Preliminary, Resulted No growth after 24 hours . All specim... 7/29/17 Blood Culture - Final, Complete Staphylococcus Hominis Ssp Jacquie 02/05/17 Blood Culture - Final, Complete Staphylococcus Hominis Ssp Jacquie 02/05/17 Urine Culture - Final, Complete ROLLY BERG PA-C Feb 08, 2017 11:23 Andres Velásquez M.D. Feb 08, 2017 16:42
[2017-02-08 14:00] VITALS: BP 156/78
[2017-02-08] MEDS: **NOTE PATIENT COMMENT** MISC XX SCH (21:00)
[2017-02-08] MEDS: MAGNESIUM OXIDE 400 MG TAB (MAG-OX) PO SCH (21:26)
[2017-02-08] MEDS: SIMVASTATIN 20 MG TAB PO SCH (21:26)
[2017-02-08 22:00] VITALS: BP 154/76
--- NOTE | 2017-02-09 02:43 | PHACANCOPD ---
PHARMACY VANCOMYCIN DOSING Pt Demographics Demographics Patient Age:81 , Weight:78.600 , Gender: male Adjusted Body Weight Date: 02/06/17, Adjusted Body Weight: Kg Events Past 24 Hours Events Past 24 Hours: NO: Dialysis, Diuretic Therapy, Change in CrCl, Fever, Elevation in WBC, Pending Diagnostics, Pending Procedures, Other Vancomycin Vancomycin indication: bacteremia Vancomycin Target Ranges: 15-20 mcg/ml Vancomycin Load Y/N: Yes Load Dose Date Time Vancomycin Load Dose: 1000mg Date: 02/06 Time: 15:00 Vancomycin Dose Date: 02/09/17. Current Vancomycin Dose: [1g IV q12h Intermittent Dosing?: No Labs Labs Item Value Date Time White Blood Count 7.4 K/mm3 02/08/17 0605 Creatinine 0.98 MG/DL 02/08/17 0605 Vancomycin Level Trough 14.5 UG/ML 02/09/17 0152 Vital Signs Label Value Date Time Patient Temperature 98.2 degrees F 02/08/17 2200 Temperature Source Temporal 02/08/17 2200 Micro Microbiology 02/06/17 Blood Culture - Preliminary, Resulted No Growth after 48 hours. All Specime... 02/06/17 Blood Culture - Preliminary, Resulted No Growth after 48 hours. All Specime... 02/05/17 Blood Culture - Final, Complete Staphylococcus Hominis Ssp Jacquie 02/05/17 Blood Culture - Final, Complete Staphylococcus Hominis Ssp Jacquie 02/05/17 Urine Culture - Final, Complete Creatinine Clearance Date:02/06/17. Creatinine Clearance: [~34 ml/min]. Pending Labs Trough 08-03 @1500 Assessment and Plan Maintaining Current Dose?: No Reason for dose change: Trough too low Pharmacist Note Pharmacist Note Date: 02/06/17. Pharmacist note: Trough of 14.5 is below target range. Dose increased to 1000mg q12h with a trough ordered for 08-03 @1500. Will continue to monitor and make adjustments as needed. SUMIT AGOSTO PHARMACY Feb 09, 2017 02:43
[2017-02-09] MEDS: NS 1,000 ML IV SCH ×2 (02:57→14:28)
[2017-02-09] MEDS ORDERED: VANCOMYCIN HCL 1,000 MG, VIAL MATE ADAPTER 1 EACH in D5W 250 ML IV SCH (04:00)
[2017-02-09] MEDS: LEVOTHYROXINE 75MCG TABLET (0.075MG) PO SCH (05:38)
[2017-02-09 06:00] VITALS: BP 150/94
[2017-02-09 06:34] LABS: BASO % 0.3 % (0.0-1.0); EOS # 0.4 K/mm3 (0.0-0.50); EOS % 5.9 % (0.0-3.0); LARGE UNSTAINED CELL # 0.1 K/mm3 (0.0-0.4); LARGE UNSTAINED CELL % 1.2 % (0.0-4.0); LYMPH # 1.2 K/mm3 (1.5-4.5); LYMPH % 16.9 % (24.0-44.0); MEAN CORPUSCULAR HEMOGLOBIN 32.2 pg (27.0-33.0); MEAN CORPUSCULAR HGB CONC 33.9 g/dl (32.0-36.5); MEAN CORPUSCULAR VOLUME 95.2 fl (80.0-96.0); MONO # 0.4 K/mm3 (0.0-0.8); MONO % 6.6 % (0.0-5.0); NEUTROPHILS # 4.6 K/mm3 (1.8-7.7); NEUTROPHILS % 69.1 % (36.0-66.0); PLATELET COUNT, AUTOMATED 223 k/mm3 (150-450); RED CELL DISTRIBUTION WIDTH 12.5 % (11.5-14.5); WHITE BLOOD COUNT 6.6 K/mm3 (4.0-10.0)
[2017-02-09 06:55] LABS: ALBUMIN 2.8 GM/DL (3.2-5.2); ALKALINE PHOSPHATASE 80 U/L (45-117); ALT/SGPT 15 U/L (12-78); ANION GAP 6 MEQ/L (8-16); AST/SGOT 37 U/L (15-37); BILIRUBIN,TOTAL 0.5 MG/DL (0.2-1.0); BLOOD UREA NITROGEN 13 MG/DL (7-18); CALCIUM LEVEL 8.3 MG/DL (8.8-10.2); CARBON DIOXIDE LEVEL 28 MEQ/L (21-32); CHLORIDE LEVEL 107 MEQ/L (98-107); CREATININE FOR GFR 1.07 MG/DL (0.70-1.30); GLOMERULAR FILTRATION RATE > 60.0 (>35); GLUCOSE, FASTING 197 MG/DL (83-110); POTASSIUM SERUM 4.2 MEQ/L (3.5-5.1); SODIUM LEVEL 141 MEQ/L (136-145); TOTAL PROTEIN 6.3 GM/DL (6.4-8.2)
[2017-02-09 07:32] LABS: ERYTHROCYTE SEDIMENTATION RATE 39 mm/hr (0-20)
[2017-02-09] MEDS: HumaLOG INSULIN (NovoLOG) PER UNIT SC SCH ×4 (10:55→21:00)
[2017-02-09] MEDS: rOPINIRole 1MG TAB PO SCH ×2 (10:56→22:20)
[2017-02-09] MEDS: PANTOPRAZOLE 40MG TAB (PROTONIX) PO SCH ×2 (10:56→22:20)
[2017-02-09] MEDS: SINEMET 25-100 MG TAB PO SCH ×4 (10:57→22:21)
[2017-02-09] MEDS: FERROUS SULFATE 325MG TAB PO SCH ×2 (10:57→22:20)
[2017-02-09] MEDS: OMEGA-3 1050MG CAPSULE PO SCH (10:57)
[2017-02-09] MEDS: FIBER-CON 625 MG TAB PO SCH (10:58)
[2017-02-09] MEDS: VITAMIN D 1,000 INTERNATIONAL UNITS TABLET PO SCH (10:58)
[2017-02-09] MEDS: busPIRone 5 MG TAB PO SCH ×2 (10:59→22:20)
[2017-02-09] MEDS: LIDOCAINE 5% (LIDODERM) PATCH TD SCH (11:00)
[2017-02-09 11:10] VITALS: BP_SYST 154; BP_SYST 160; BP_DIAS 70; BP_DIAS 72
[2017-02-09 14:00] VITALS: BP 144/80
--- NOTE | 2017-02-09 15:25 | IPNPDOC ---
Subjective Date Seen The patient was seen on 02/09/17. Subjective Chief Complaint/HPI The patient is a 81-year-old male admitted with a reason for visit of Confusion , Fall. Events since last encounter I saw this patient this afternoon while PT was attempting to work with him; he was willing to sit on the side of his bed but was not willing to participate in PT. He has some word finding difficulties today, which is consistent with his baseline - however, he did seem to understand what was being asked of him in terms of doing PT, and he made it clear that he was not interested in participating in PT. I discussed with him that he may need permanent skilled nursing placement if he is not willing to work with PT, to which he stated "ok then ". Pulmonary: Denies: Dyspnea, Cough Cardiovascular: Denies: Chest Pain Gastrointestinal: Denies: Abdominal Pain Neurological: Reports: Weakness (generalized), Denies: Change in speech (speech is at baseline) Objective Physical Examination General Exam: Positive: Alert, No Acute Distress Eye Exam: Positive: Conjunctiva & lids normal, EOMI ENT Exam: Positive: Mucous membr. moist/pink Chest Exam: Positive: Clear to auscultation, Diminished Heart Exam: Positive: Rate Normal, Normal S1, Normal S2 Abdomen Exam: Positive: Normal bowel sounds, Soft, Negative: Tenderness Extremity Exam: Negative: Edema Skin Exam: Positive: Nl turgor and temperature Psych Exam: Positive: Other (difficult to assess due to word finding difficulties) Assessment /Plan Problems (1) Positive blood culture Problem Text: 02/09: Repeat blood cultures negative x72 hours; initial blood cultures were drawn 2 minutes apart and were likely from the same site; as mental status is currently at baseline, I suspect that these were positive due to contamination. Vancomycin stopped today. 02/08 remains stable, MS, wakefulness has improved since yesterday-dc vanco if - TTE 02/07 afebrile since admission, no obvious source, normal WBC 02/06 BCX x 2 NG 02/05 BCX x 2 S. hominis (drawn 2 minutes apart-probably from same contaminated draw and NO h/o prosthetic device/valve) 02/05 UCX cathed NG 02/06 TTE ordered-have read STAT (2) Orthostasis Status: Resolved Problem Text: favor 2 dehydration, alpha-everette, autonomic dysfx 2 Parkinson' s dis 02/06 doxazosin 2 BID held (last dose 02/06 900) (3) Fall Status: Acute Problem Text: 02/09 - Patient seen with PT today; he is not willing to participate in PT. Per PFS, he has a bed at [facility], and so plan is to discharge him there tomorrow. 02/07 case d/w PCP-Dr. Briseno who STRONGLY feels patient needs SNF 02/06 -- likely contributed to by orthostasis, but probably multifactorial -- vision, neuropathy, deconditioning, orthostasis, etc. He is having trouble cooperating with PT. Without injury. PT to eval and treat. Orthostatic vitals ordered. (4) Weakness Status: Acute Response to Treatment: Compensated, Progressing Problem Text: 02/09 - as above; discharge to [facility] tomorrow 02/06 -- as above, patient becomes orthostatic. Differential includes deconditioning vs medication vs orthostasis, or a combination. Orthostatic vitals ordered. PT will eval and treat. He may not be safe for DC to assisted living. 02/05 MRI brain: Impression: No evidence of acute infarct or hemorrhage. Moderate age-related atrophy and chronic small vessel ischemic disease, grossly stable. (5) Parkinson's disease Status: Acute Problem Text: On levodopa/carbidopa and DA agonist. (6) Confusion Problem Text: Mental status currently at baseline; I believe he has some understanding of the questions asked but has difficulty communicating his responses. Vancomycin discontinued today as repeat blood cultures were negative x72 hours. urine cx neg, blood cultures x 2 prelim + Staph Hominis , repeat negative, afebrile, no leukocytosis, Vanco started 02/06, monitor. SSRI held. An occult infection is a possibility. He was prescribed Bactrim for a UTI on , but current UA does not look consistent with a UTI, so I am holding antibiotics and monitoring. (Cultures sent.) Additionally, his dementia may be worsening. (7) Chronic kidney disease Status: Chronic Response to Treatment: Stable Problem Text: Initial TRINA has resolved. At baseline cr 1.1-1.2 Plan/VTE VTE Prophylaxis Ordered?: Yes VS, I&O, 24H, Fishbone Vital Signs/I&O Vital Signs Date Time Temp Pulse Resp B/P (MAP) Pulse Ox O2 Delivery O2 Flow Rate FiO2 02/09/17 14:00 97.4 67 19 144/80 (101) 97 Room Air I&O- Last 24 Hours up to 6 AM 02/09/17 06:00 Intake Total 1690 ml Output Total 100 ml Balance 1590 ml Laboratory Data 24H LABS Laboratory Tests 2 02/08/17 16:46: Bedside Glucose (Misc Panel) 139H 02/08/17 21:14: Bedside Glucose (Misc Panel) 245H 02/09/17 01:52: Vancomycin Level Trough 14.5 02/09/17 06:07: White Blood Count 6.6, Red Blood Count 3.46L, Hemoglobin 11.2L, Hematocrit 32.9L , Mean Corpuscular Volume 95.2, Mean Corpuscular Hemoglobin 32.2, Mean Corpuscular Hemoglobin Concent 33.9, Red Cell Distribution Width 12.5, Platelet Count 223, Neutrophils (%) (Auto) 69.1H, Lymphocytes (%) (Auto) 16.9L, Monocytes (%) (Auto) 6.6H, Eosinophils (%) (Auto) 5.9H, Basophils (%) (Auto) 0.3 , Neutrophils # (Auto) 4.6, Lymphocytes # (Auto) 1.2L, Monocytes # (Auto) 0.4, Eosinophils # (Auto) 0.4, Basophils # (Auto) 0.0, Large Unclassified Cells % 1.2 , Large Unclassified Cells # 0.1, Erythrocyte Sedimentation Rate 39H, Anion Gap 6L, Glomerular Filtration Rate > 60.0, Blood Urea Nitrogen 13, Creatinine 1.07, Sodium Level 141, Potassium Level 4.2, Chloride Level 107, Carbon Dioxide Level 28, Calcium Level 8.3L, Aspartate Amino Transf (AST/SGOT) 37, Alanine Aminotransferase (ALT/SGPT) 15, Alkaline Phosphatase 80, Total Bilirubin 0.5, Total Protein 6.3L, Albumin 2.8L, C-Reactive Protein, Quantitative 1.16H, Albumin/Globulin Ratio 0.80L 02/09/17 11:42: Bedside Glucose (Misc Panel) 205H CBC/BMP Laboratory Tests 02/09/17 06:07 Red Blood Count 3.46 L, Mean Corpuscular Volume 95.2, Mean Corpuscular Hemoglobin 32.2, Mean Corpuscular Hemoglobin Concent 33.9, Red Cell Distribution Width 12.5, Neutrophils (%) (Auto) 69.1 H, Lymphocytes (%) (Auto) 16.9 L, Monocytes (%) (Auto) 6.6 H, Eosinophils (%) (Auto) 5.9 H, Basophils (%) (Auto) 0.3, Neutrophils # (Auto) 4.6, Lymphocytes # (Auto) 1.2 L, Monocytes # ( Auto) 0.4, Eosinophils # (Auto) 0.4, Basophils # (Auto) 0.0, Calcium Level 8.3 L , Aspartate Amino Transf (AST/SGOT) 37, Alanine Aminotransferase (ALT/SGPT) 15, Alkaline Phosphatase 80, Total Bilirubin 0.5, Total Protein 6.3 L, Albumin 2.8 L Microbiology Microbiology 02/06/17 Blood Culture - Preliminary, Resulted No Growth after 72 hours. All specime... 02/06/17 Blood Culture - Preliminary, Resulted No Growth after 72 hours. All specime... 02/05/17 Blood Culture - Final, Complete Staphylococcus Hominis Ssp Jacquie 02/05/17 Blood Culture - Final, Complete Staphylococcus Hominis Ssp Jacquie 02/05/17 Urine Culture - Final, Complete HECTOR BRISENO MD Feb 09, 2017 15:25
[2017-02-09] MEDS: **NOTE PATIENT COMMENT** MISC XX SCH (21:00)
[2017-02-09 22:00] VITALS: BP 155/84
[2017-02-09] MEDS: MAGNESIUM OXIDE 400 MG TAB (MAG-OX) PO SCH (22:20)
[2017-02-09] MEDS: SIMVASTATIN 20 MG TAB PO SCH (22:21)
[2017-02-10 06:00] VITALS: BP 157/82
[2017-02-10] MEDS: LEVOTHYROXINE 75MCG TABLET (0.075MG) PO SCH (06:03)
[2017-02-10 06:51] LABS: BASO % 0.6 % (0.0-1.0); EOS # 0.4 K/mm3 (0.0-0.50); EOS % 5.4 % (0.0-3.0); LARGE UNSTAINED CELL # 0.1 K/mm3 (0.0-0.4); LYMPH # 1.4 K/mm3 (1.5-4.5); LYMPH % 16.1 % (24.0-44.0); MEAN CORPUSCULAR HEMOGLOBIN 32.1 pg (27.0-33.0); MEAN CORPUSCULAR HGB CONC 34.5 g/dl (32.0-36.5); MEAN CORPUSCULAR VOLUME 92.9 fl (80.0-96.0); MONO # 0.6 K/mm3 (0.0-0.8); MONO % 6.9 % (0.0-5.0); NEUTROPHILS # 5.8 K/mm3 (1.8-7.7); PLATELET COUNT, AUTOMATED 225 k/mm3 (150-450); RED CELL DISTRIBUTION WIDTH 12.8 % (11.5-14.5); WHITE BLOOD COUNT 8.3 K/mm3 (4.0-10.0)
[2017-02-10 07:03] VITALS: BP_SYST 147; BP_SYST 150; BP_DIAS 70; BP_DIAS 74
[2017-02-10 07:10] LABS: ALBUMIN 2.9 GM/DL (3.2-5.2); ALBUMIN/GLOBULIN RATIO 0.85 (1.00-1.93); ALKALINE PHOSPHATASE 79 U/L (45-117); ALT/SGPT 13 U/L (12-78); ANION GAP 10 MEQ/L (8-16); AST/SGOT 34 U/L (15-37); BILIRUBIN,TOTAL 0.5 MG/DL (0.2-1.0); BLOOD UREA NITROGEN 17 MG/DL (7-18); CALCIUM LEVEL 8.6 MG/DL (8.8-10.2); CARBON DIOXIDE LEVEL 26 MEQ/L (21-32); CHLORIDE LEVEL 106 MEQ/L (98-107); CREATININE FOR GFR 1.09 MG/DL (0.70-1.30); GLOMERULAR FILTRATION RATE > 60.0 (>35); GLUCOSE, FASTING 184 MG/DL (83-110); POTASSIUM SERUM 4.1 MEQ/L (3.5-5.1); SODIUM LEVEL 142 MEQ/L (136-145); TOTAL PROTEIN 6.3 GM/DL (6.4-8.2)
[2017-02-10] MEDS: HumaLOG INSULIN (NovoLOG) PER UNIT SC SCH ×4 (09:03→20:15)
[2017-02-10] MEDS: OMEGA-3 1050MG CAPSULE PO SCH (09:04)
[2017-02-10] MEDS: SINEMET 25-100 MG TAB PO SCH ×4 (09:04→21:08)
[2017-02-10] MEDS: FIBER-CON 625 MG TAB PO SCH (09:04)
[2017-02-10] MEDS: rOPINIRole 1MG TAB PO SCH ×2 (09:04→21:08)
[2017-02-10] MEDS: FERROUS SULFATE 325MG TAB PO SCH ×2 (09:04→21:07)
[2017-02-10] MEDS: PANTOPRAZOLE 40MG TAB (PROTONIX) PO SCH ×2 (09:04→21:08)
[2017-02-10] MEDS: busPIRone 5 MG TAB PO SCH ×2 (09:04→21:07)
[2017-02-10] MEDS: VITAMIN D 1,000 INTERNATIONAL UNITS TABLET PO SCH (09:04)
[2017-02-10] MEDS: LIDOCAINE 5% (LIDODERM) PATCH TD SCH (09:04)
[2017-02-10] MEDS ORDERED: FLEET ENEMA PR PRN (10:45)
[2017-02-10] MEDS ORDERED: BISACODYL 10 MG SUPP PR ONE (13:15)
[2017-02-10 14:00] VITALS: BP 144/78
[2017-02-10] MEDS: **NOTE PATIENT COMMENT** MISC XX SCH (21:00)
[2017-02-10 21:08] VITALS: BP 172/90
[2017-02-10] MEDS: MAGNESIUM OXIDE 400 MG TAB (MAG-OX) PO SCH (21:09)
[2017-02-10] MEDS: SIMVASTATIN 20 MG TAB PO SCH (21:09)
--- NOTE | 2017-02-10 21:17 | ECHO ---
DATE OF PROCEDURE: 02/10/2017 AGE: 81 GENDER: Male HEIGHT: 64 inches WEIGHT: 174 pounds BODY SURFACE AREA: 1.85 m2 PATIENT LOCATION: Inpatient, [address] [place] [address], room 4210 REFERRING PHYSICIAN: Ashlee Roca MD INDICATION: Sepsis. 2-D MEASUREMENTS: RV: 3.3 cm LV: 3.8 cm Septum: 1.2 cm Posterior wall: 1.1 cm Aortic root: 3.2 cm LA: 3.8 cm LVEF: 75% DOPPLER MEASUREMENTS: AV: 1.1 m/s LVOT: 0.82 m/s LVOT diameter: 2.2 cm MV-E: 50, A: 87, EA ratio: 0.6 Early mitral deceleration time 215 ms E prime: 4, A prime: 10, EE prime ratio: 12.5 PV: 0.9 m/s Pulmonary artery acceleration time: 116 ms RVSP: 27 mmHg IVC: 1.7 cm COMMENTS: Normal sinus rhythm without intraventricular conduction disturbance. Left atrial size upper limits of normal, but other cardiac chamber sizes were well within normal limits. Left ventricle (LV) wall thickness was upper limits of normal. On real-time imaging from the parasternal and apical projections wall motion was symmetrical and hyperkinetic. Mildly thickened mitral annulus but normal leaflet thickness and excursion with no posterior systolic buckling. Three equal size aortic cusps with mildly thickened cusp edges but adequate cusp separation. Normal aortic root size. No apparent intracardiac mass or pericardial effusion. Color flow Doppler study taken from the parasternal and apical projections showed mild aortic, mild mitral and very mild tricuspid insufficiency. Guided continuous wave Doppler of his aortic valve showed a normal peak systolic velocity against LV outflow tract obstruction. Pulsed and continuous wave Doppler of his LV inflow tract taken from the apical four-chamber projection showed normal diastolic filling velocities against mitral stenosis. There was more prominent late diastolic / atrial dependent filling pattern. Degree of LV diastolic dysfunction was confirmed by a prolonged early mitral deceleration time and tissue Doppler of his mitral annulus. However, his current estimated mean left atrial pressure using pulsed and tissue Doppler of his mitral annulus was within normal limits. Pulsed and continuous wave Doppler of his pulmonary trunk showed a normal peak systolic velocity against RV outflow tract obstruction. His pulmonary artery acceleration time was normal against an elevated pulmonary vascular resistance. Guided continuous wave Doppler of his tricuspid valve allowed our estimation of his right ventricular systolic pressure (upper limits of normal). IVC size was normal with normal respiratory collapse against an elevated central venous pressure. CONCLUSIONS: Mild aortic valvular sclerosis without stenosis and mild insufficiency. Could not visualize a pedunculated mass or vegetation, but could not rule out a small sessile vegetation. Mild mitral annular calcification without inflow tract obstruction, but mild insufficiency. Normal left ventricular size, wall thickness and wall motion. Left atrial size upper limits of normal to mildly increased with Doppler evidence of an impairment of LV diastolic function. A currently normal estimated mean left atrial pressure. Normal right heart chamber sizes and wall motion with normal estimated pulmonary arterial pressure. Normal IVC size and collapse against an elevated central venous pressure. If endocarditis was seriously suspect, we would recommend complete blood count, sedimentation rate and two sets of blood cultures by 12 hours along with a transesophageal echo to further define aortic valve structure and function.
[2017-02-10 22:00] VITALS: BP 172/90
[2017-02-11 06:00] VITALS: BP 144/86
[2017-02-11 06:17] LABS: BASO % 0.4 % (0.0-1.0); EOS # 0.5 K/mm3 (0.0-0.50); EOS % 5.6 % (0.0-3.0); LARGE UNSTAINED CELL # 0.1 K/mm3 (0.0-0.4); LARGE UNSTAINED CELL % 1.3 % (0.0-4.0); LYMPH # 1.4 K/mm3 (1.5-4.5); LYMPH % 16.2 % (24.0-44.0); MEAN CORPUSCULAR HEMOGLOBIN 31.8 pg (27.0-33.0); MEAN CORPUSCULAR HGB CONC 34.3 g/dl (32.0-36.5); MEAN CORPUSCULAR VOLUME 92.8 fl (80.0-96.0); MONO # 0.5 K/mm3 (0.0-0.8); MONO % 5.9 % (0.0-5.0); NEUTROPHILS # 5.8 K/mm3 (1.8-7.7); NEUTROPHILS % 70.6 % (36.0-66.0); PLATELET COUNT, AUTOMATED 231 k/mm3 (150-450); RED CELL DISTRIBUTION WIDTH 12.8 % (11.5-14.5); WHITE BLOOD COUNT 8.2 K/mm3 (4.0-10.0)
[2017-02-11] MEDS: LEVOTHYROXINE 75MCG TABLET (0.075MG) PO SCH (06:28)
[2017-02-11 06:41] LABS: ALBUMIN 2.7 GM/DL (3.2-5.2); ALBUMIN/GLOBULIN RATIO 0.87 (1.00-1.93); ALKALINE PHOSPHATASE 75 U/L (45-117); ALT/SGPT 12 U/L (12-78); ANION GAP 11 MEQ/L (8-16); AST/SGOT 26 U/L (15-37); BILIRUBIN,TOTAL 0.4 MG/DL (0.2-1.0); BLOOD UREA NITROGEN 23 MG/DL (7-18); CALCIUM LEVEL 8.8 MG/DL (8.8-10.2); CARBON DIOXIDE LEVEL 24 MEQ/L (21-32); CHLORIDE LEVEL 106 MEQ/L (98-107); CREATININE FOR GFR 1.18 MG/DL (0.70-1.30); GLOMERULAR FILTRATION RATE > 60.0 (>35); GLUCOSE, FASTING 190 MG/DL (83-110); POTASSIUM SERUM 3.7 MEQ/L (3.5-5.1); SODIUM LEVEL 141 MEQ/L (136-145); TOTAL PROTEIN 5.8 GM/DL (6.4-8.2)
[2017-02-11 06:43] VITALS: BP_SYST 140; BP_SYST 144; BP_DIAS 86; BP_DIAS 98
[2017-02-11] MEDS: PANTOPRAZOLE 40MG TAB (PROTONIX) PO SCH (08:37)
[2017-02-11] MEDS: SINEMET 25-100 MG TAB PO SCH (08:37)
[2017-02-11] MEDS: VITAMIN D 1,000 INTERNATIONAL UNITS TABLET PO SCH (08:37)
[2017-02-11] MEDS: LIDOCAINE 5% (LIDODERM) PATCH TD SCH (08:37)
[2017-02-11] MEDS: FERROUS SULFATE 325MG TAB PO SCH (08:37)
[2017-02-11] MEDS: FIBER-CON 625 MG TAB PO SCH (08:37)
[2017-02-11] MEDS: busPIRone 5 MG TAB PO SCH (08:37)
[2017-02-11] MEDS: OMEGA-3 1050MG CAPSULE PO SCH (08:37)
[2017-02-11] MEDS: HumaLOG INSULIN (NovoLOG) PER UNIT SC SCH (08:37)
[2017-02-11] MEDS: rOPINIRole 1MG TAB PO SCH (08:41)
--- NOTE | 2017-02-11 12:29 | DSES ---
DATE OF ADMISSION: DATE OF DISCHARGE: 02/10/2017 PRIMARY CARE PHYSICIAN: Sherie Briseno MD ATTENDING TODAY: Andres Velásquez MD HISTORY: This is an 81-year-old male. The patient is a resident of [facility], who had increased confusion and falls. His daughter stated that the falls were unwitnessed and seemingly do have slipped off the bed. He has been increasingly weak in the last week or more and this has been progressively declining. They brought him into the emergency room for further evaluation. Blood cultures, urine cultures were obtained. Blood cultures were positive times two for staphylococcus hominis. The repeat cultures were negative. Urine culture was negative. He has been afebrile without leukocytosis during his hospitalization. He was put on vancomycin. He did have an echocardiogram, although the results of this are not yet available. His mental status has improved. His weakness has improved slightly with physical therapy, although he has been mostly unwilling to participate and his orthostasis has improved, it is likely secondary to dehydration of the everette use, as well as autonomic dysfunction associated with his Parkinson's disease. His doxazosin has been held during his hospitalization and will continue to be held at discharge. He initially had acute kidney injury on presentation with a serum creatine of 1.61, although with hydration, this has improved. He is being transitioned to [facility]. Today, his family is at bedside. They are anticipating his transfer and ready for this. DISCHARGE DIAGNOSIS INCLUDE: 1. Positive blood culture. 2. Orthostasis. 3. Fall. 4. Weakness. 5. Parkinson's disease. 6. Confusion. 7. Chronic kidney disease. DISCHARGE MEDICATIONS INCLUDE: - acetaminophen 325 mg every 6 hours as needed for fever - albuterol sulfate 2 puffs inhaled 4 x daily as needed for shortness of breath - alprazolam 0.25 mg by mouth twice a day as needed for anxiety - amlodipine 2.5 mg daily - BuSpar 5 mg twice daily - fiber 625 mg by mouth daily - Sinemet 25/100 mg one tablet 4 x daily - vitamin D 1000 units by mouth daily - Nexium 40 mg twice daily - ferrous sulfate 325 mg twice daily - fish oil 100 mg by mouth daily - guaifenesin 100 mg per mL syrup 5 mL every 4 hours as needed for cough - insulin Lispro quick pen 4 units subcutaneous before food and at bedtime (q.h.s.) - Synthroid 75 mcg by mouth daily - lidocaine patch topically daily - magnesium oxide 400 mg by mouth before bed - Zofran 4 mg every 8 hours as needed for nausea - Refresh each eye four times daily - Restasis to each twice daily - Requip 2 mg by mouth twice a day - simvastatin 20 mg by mouth at bedtime (q.h.s.) - Januvia 50 mg by mouth daily DISCHARGE PLAN: Followup with the medical doctor at [facility]. Activity should be as tolerated. His diet is consistent carbohydrate.
--- NOTE | 2017-02-13 07:57 | DSES ---
DATE OF ADMISSION: 02/05/2017 DATE OF DISCHARGE: 02/11/2017 We anticipated discharge yesterday, however the patient had not had a bowel movement and failed to do so with an initial Fleet's enema. He has since had a bowel movement and will be discharged to [facility] today.
== END 2017-02-11 11:10 | DRG 92 ==
LOC: EDBD 16:17 → M ED 16:17 → M ED INP 20:16 → M PCU 22:44 → M MSPAV 02-06 22:26
PROVIDERS: ADMIT Family Medicine; ATTEND Family Medicine
DX: R29.6 Repeated falls (principal); N17.9 Acute kidney failure, unspecified; G31.83 Neurocognitive disorder with Lewy bodies; F02.80 Dementia in other diseases classified elsewhere, unspecified severity, without behavioral disturbance, psychotic disturbance, mood disturbance, and anxiety; E11.40 Type 2 diabetes mellitus with diabetic neuropathy, unspecified; E11.319 Type 2 diabetes mellitus with unspecified diabetic retinopathy without macular edema; E11.22 Type 2 diabetes mellitus with diabetic chronic kidney disease; N18.9 Chronic kidney disease, unspecified; F41.9 Anxiety disorder, unspecified; F32.9 Major depressive disorder, single episode, unspecified; I95.1 Orthostatic hypotension; R53.1 Weakness; K59.00 Constipation, unspecified; R41.82 Altered mental status, unspecified; Z79.4 Long term (current) use of insulin; Z79.899 Other long term (current) drug therapy

== ENCOUNTER → 2017-02-14 | Outpatient (REF) | payer MEDICARE, OTHER ==
[~2017-02-14] MED LIST changes: +ALPR0.25 PO; +BACT800T5 PO; +BUSP5TA PO; +GUAI100S7 PO; +LEVO75TA4 PO; +MAPA325T2 PO
[2017-02-14 14:12] LABS: MEAN CORPUSCULAR HEMOGLOBIN 32.5 pg (27.0-33.0); MEAN CORPUSCULAR HGB CONC 34.7 g/dl (32.0-36.5); MEAN CORPUSCULAR VOLUME 93.8 fl (80.0-96.0); RED CELL DISTRIBUTION WIDTH 12.8 % (11.5-14.5); WHITE BLOOD COUNT 6.8 K/mm3 (4.0-10.0)
[2017-02-14 14:54] LABS: CALCIUM LEVEL 8.6 MG/DL (8.8-10.2); CREATININE FOR GFR 1.47 MG/DL (0.70-1.30); GLOMERULAR FILTRATION RATE 48.8 (>35); MAGNESIUM LEVEL 2.3 MG/DL (1.8-2.4); POTASSIUM SERUM 4.1 MEQ/L (3.5-5.1)
== END ==
PROVIDERS: ATTEND Family Medicine
DX: R53.83 Other fatigue (principal); Z79.899 Other long term (current) drug therapy

== ENCOUNTER → 2017-02-15 | Outpatient (REF) | payer MEDICARE, OTHER | PROVIDERS: ATTEND Family Medicine | DX: E11.9 Type 2 diabetes mellitus without complications (principal); Z53.9 Procedure and treatment not carried out, unspecified reason ==

== ENCOUNTER → 2017-02-22 | Outpatient (REF) | payer MEDICARE, OTHER ==
[2017-02-22 12:04] LABS: MEAN CORPUSCULAR HEMOGLOBIN 31.7 pg (27.0-33.0); MEAN CORPUSCULAR HGB CONC 33.7 g/dl (32.0-36.5); MEAN CORPUSCULAR VOLUME 94.1 fl (80.0-96.0); RED CELL DISTRIBUTION WIDTH 12.7 % (11.5-14.5); WHITE BLOOD COUNT 8.7 K/mm3 (4.0-10.0)
[2017-02-22 12:46] LABS: CREATININE FOR GFR 1.36 MG/DL (0.70-1.30); GLOMERULAR FILTRATION RATE 53.4 (>35); POTASSIUM SERUM 4.8 MEQ/L (3.5-5.1)
== END ==
PROVIDERS: ATTEND Family Medicine
DX: I10 Essential (primary) hypertension (principal); E11.9 Type 2 diabetes mellitus without complications

== ENCOUNTER → 2017-03-01 | Outpatient (REF) ==
[2017-03-01 11:21] LABS: MEAN CORPUSCULAR HEMOGLOBIN 32.2 pg (27.0-33.0); MEAN CORPUSCULAR HGB CONC 33.8 g/dl (32.0-36.5); MEAN CORPUSCULAR VOLUME 95.3 fl (80.0-96.0); RED CELL DISTRIBUTION WIDTH 12.8 % (11.5-14.5)
[2017-03-01 11:43] LABS: CALCIUM LEVEL 8.7 MG/DL (8.8-10.2); CREATININE FOR GFR 1.41 MG/DL (0.70-1.30); GLOMERULAR FILTRATION RATE 51.2 (>35)
== END ==
PROVIDERS: ATTEND Family Medicine
DX: E11.9 Type 2 diabetes mellitus without complications (principal)

== ENCOUNTER → 2017-04-14 | Outpatient (REF) ==
[2017-04-14 18:45] LABS: MEAN CORPUSCULAR HEMOGLOBIN 31.8 pg (27.0-33.0); MEAN CORPUSCULAR HGB CONC 33.5 g/dl (32.0-36.5); RED CELL DISTRIBUTION WIDTH 13.4 % (11.5-14.5)
== END ==
PROVIDERS: ATTEND Family Medicine
DX: R53.81 Other malaise (principal)

== ENCOUNTER → 2017-04-15 | Outpatient (REF) ==
[2017-04-15 11:16] LABS: CALCIUM LEVEL 9.2 MG/DL (8.8-10.2); CREATININE FOR GFR 1.39 MG/DL (0.70-1.30); GLOMERULAR FILTRATION RATE 52.1 (>35); POTASSIUM SERUM 4.5 MEQ/L (3.5-5.1)
== END ==
PROVIDERS: ATTEND Family Medicine
DX: R53.81 Other malaise (principal)